=== PATIENT | female | born 1940 | race Caucasian/White ===

== ENCOUNTER → 2023-05-09 10:42 | Outpatient (REF) | payer MEDICARE, OTHER, SELFPAY ==
[2023-05-09 13:16] LABS: % Eosinophils 5.6 % (0-6); % Lymphocytes 31.1 % (20.5-51.1); % Monocytes 11.2 % (1.7-9.3); % Neutrophils 49.1 % (42.2-75.2); Absolute Basophils 0.2 10^3/uL (0-0.2); Absolute Eosinophils 0.3 10^3/uL (0-0.7); Absolute Lymphocytes 1.6 10^3/uL (1.2-3.4); Absolute Monocytes 0.6 10^3/uL (0.1-0.6); Absolute Neutrophils 2.5 10^3/uL (1.4-6.5); Hemoglobin 12.1 g/dL (12.0-16.0); Mean Corp Hgb Conc. 32.7 g/dL (33.0-37.0); Mean Corpuscular Hgb 30.4 pg (27.0-31.0); Mean Platelet Volume 9.7 fL (7.4-10.4); Nucleated Red Blood Cells % 0 %; Platelet Count 221 10^3/uL (130-400); Red Blood Cell Count 3.98 10^6/uL (4.20-5.40); Red Cell Dist. Width 16.1 % (11.5-14.5)
[2023-05-09 13:29] LABS: ALT (SGPT) 17 U/L (0-35); AST (SGOT) 25 U/L (14-36); Albumin 3.3 g/dl (3.5-5.0); Alkaline Phosphatase 71 U/L (38-126); Blood Urea Nitrogen 29 mg/dl (7-17); Calcium 8.8 mg/dl (8.4-10.2); Carbon Dioxide 27 mmol/L (22-30); Chloride 101 mmol/L (98-107); Glucose 164 mg/dl (70-99); Potassium 4.6 mmol/L (3.5-5.1); Sodium 136 mmol/L (135-145); Total Bilirubin 0.9 mg/dl (0.2-1.3); Total Protein 5.8 g/dl (6.3-8.2); eGFR > 60.00
[2023-05-09 14:47] LABS: Protein/creatinine Ratio 1.1; Urine Protein 179 mg/dl
== END ==
LOC: OLABHEARBC 10:42
PROVIDERS: ATTENDING PHYSICIAN Internal Medicine Hematology & Oncology
DX: C18.7 Malignant neoplasm of sigmoid colon (principal); C78.7 Secondary malignant neoplasm of liver and intrahepatic bile duct; R19.7 Diarrhea, unspecified
CPT/HCPCS: 36415; 80053; 82570; 84156; 85025

== ENCOUNTER → 2023-07-11 11:50 | Outpatient (REF) | payer MEDICARE, OTHER, SELFPAY ==
[2023-07-11 12:43] LABS: % Basophils 1.9 % (0-2); % Eosinophils 4.8 % (0-6); % Immature Granulocytes 0.2 % (0-0.5); % Lymphocytes 14.9 % (20.5-51.1); % Monocytes 13.9 % (1.7-9.3); % Neutrophils 64.3 % (42.2-75.2); Absolute Basophils 0.1 10^3/uL (0-0.2); Absolute Eosinophils 0.3 10^3/uL (0-0.7); Absolute Lymphocytes 0.8 10^3/uL (1.2-3.4); Absolute Monocytes 0.7 10^3/uL (0.1-0.6); Absolute Neutrophils 3.4 10^3/uL (1.4-6.5); Hematocrit 32.1 % (37.0-47.0); Hemoglobin 10.7 g/dL (12.0-16.0); Mean Corp Hgb Conc. 33.3 g/dL (33.0-37.0); Mean Corpuscular Hgb 30.6 pg (27.0-31.0); Mean Corpuscular Volume 91.7 fL (81.0-99.0); Mean Platelet Volume 9.5 fL (7.4-10.4); Nucleated Red Blood Cells % 0 %; Platelet Count 278 10^3/uL (130-400); Red Cell Dist. Width 15.8 % (11.5-14.5); White Blood Cell Count 5.3 10^3/uL (4.8-10.8)
[2023-07-11 12:51] LABS: ALT (SGPT) 14 U/L (0-35); AST (SGOT) 22 U/L (14-36); Albumin 2.6 g/dl (3.5-5.0); Alkaline Phosphatase 94 U/L (38-126); Blood Urea Nitrogen 13 mg/dl (7-17); Calcium 8.2 mg/dl (8.4-10.2); Carbon Dioxide 20 mmol/L (22-30); Chloride 103 mmol/L (98-107); Glucose 267 mg/dl (70-99); HDL Cholesterol 47 mg/dl; LDL Cholesterol, Calculated 31 mg/dl; Potassium 3.7 mmol/L (3.5-5.1); Sodium 132 mmol/L (135-145); Total Bilirubin 0.5 mg/dl (0.2-1.3); Total Cholesterol 108 mg/dl (50-199); Total Protein 4.9 g/dl (6.3-8.2); Triglyceride 150 mg/dl (10-149); Very Low Density Lipoprotein 30 mg/dl (0-30); eGFR > 60.00
[2023-07-11 13:09] LABS: Free T4 1.27 ng/dl (0.78-2.19); Vitamin D, 25-OH*** 15.7 ng/mL (30-80)
== END ==
LOC: OLABSOL 11:50
PROVIDERS: ATTENDING PHYSICIAN Nurse Practitioner Gerontology
DX: D69.9 Hemorrhagic condition, unspecified (principal); R94.4 Abnormal results of kidney function studies; D11.9 Benign neoplasm of major salivary gland, unspecified; E03.9 Hypothyroidism, unspecified; E55.9 Vitamin D deficiency, unspecified; E78.5 Hyperlipidemia, unspecified; R73.09 Other abnormal glucose
CPT/HCPCS: 36415; 80053; 80061; 82306; 83036; 84439; 84443; 85025

== ENCOUNTER → 2023-07-23 09:33 | Outpatient (REF) | payer MEDICARE, OTHER, SELFPAY ==
[2023-07-23 10:39] LABS: Sodium 132 mmol/L (135-145)
== END ==
LOC: OLABSOL 09:33
PROVIDERS: ATTENDING PHYSICIAN Nurse Practitioner Gerontology
DX: E87.1 Hypo-osmolality and hyponatremia (principal)
CPT/HCPCS: 36415; 84295

== ENCOUNTER 2023-08-10 22:37 | Inpatient (IN) | payer MEDICARE, OTHER, SELFPAY ==
[2023-08-10 19:13] VITALS: BP 128/89
[2023-08-10 19:16] VITALS: BP 128/89
[2023-08-10 19:34] LABS: Glucose - Point of Care > 600 mg/dl (70-99)
[2023-08-10 19:35] LABS: Hematocrit 37.9 % (37.0-47.0); Hemoglobin 12.2 g/dL (12.0-16.0); Mean Corp Hgb Conc. 32.2 g/dL (33.0-37.0); Mean Corpuscular Hgb 29.8 pg (27.0-31.0); Mean Corpuscular Volume 92.4 fL (81.0-99.0); Mean Platelet Volume 9.2 fL (7.4-10.4); Platelet Count 287 10^3/uL (130-400); Red Cell Dist. Width 15.4 % (11.5-14.5); White Blood Cell Count 7.2 10^3/uL (4.8-10.8)
[2023-08-10 19:35] LABS: Venous Blood Gas B.E. -18.4 mmol/L (-4 to +4); Venous Blood Gas HCO3 8.6 mmol/L (22-27); Venous Blood Gas O2 Sat % 97.7 %; Venous Blood Gas pCO2 24 mmHg (35-48); Venous Blood Gas pO2 92 mmHg (30-50)
[2023-08-10 19:36] LABS: Venous Blood Gas pH 7.16 (7.32-7.43)
[2023-08-10 19:43] LABS: INR 1.04; PT 13.4 Sec (11.4-14.6)
[2023-08-10 20:00] VITALS: BP 134/74
[2023-08-10 20:07] LABS: AST (SGOT) 31 U/L (14-36); Albumin 4.5 g/dl (3.5-5.0); Alkaline Phosphatase 112 U/L (38-126); Blood Urea Nitrogen 22 mg/dl (7-17); Calcium 9.9 mg/dl (8.4-10.2); Carbon Dioxide < 5 mmol/L (22-30); Chloride 103 mmol/L (98-107); Glucose 597 mg/dl (70-99); Potassium 4.5 mmol/L (3.5-5.1); Sodium 133 mmol/L (135-145); Total Bilirubin 0.8 mg/dl (0.2-1.3); Total Protein 7.2 g/dl (6.3-8.2); eGFR 50.48
[2023-08-10 20:13] VITALS: BMI 29.9
--- NOTE | 2023-08-10 20:18 | ED.GENMED ---
History of Present Illness
General
Chief Complaint: Abnormal Lab Value
Source: patient and shelter records
Exam Limitations: altered mental status
Time Seen by Provider: 08/10/23 19:41
Travel History
Have you had any contact with someone who has COVID-19?: Unable to Answer
Do you have any symptoms of coronavirus? Fever > 100 degrees, chills, cough, shortness of breath, sore throat, loss of taste or smell, muscle aches, or headache?: Unable to Answer
History of Present Illness
History of Present Illness:
82-year-old female who presents for evaluation of high blood sugar. Patient does have a history of diabetes. Patient offers no complaints of my evaluation. No reported fevers. Patient denies dysuria. No vomiting. No abdominal pain. Patient
has a reported history of colon cancer. She does have a port in the right chest wall. She has had urinary tract infections in the past
Past History
Past History
ED Past Medical History: Cancer (Colon), IDDM, Hypothyroidism, Psychiatric (Depression) and Other (Hemorrhoids)
ED Past Surgical History: Bowel resection and Orthopedic (Back surgery x 2)
Social History
Tobacco: Non-smoker
Alcohol: None
Drug: None
Personal:
Living: assisted living
Employment: Other
Family History
Family History: Other
Phy Exam
Physical Exam
Physical Exam:
CONSTITUTIONAL Patient alert and oriented to person, place. Well-appearing. Vital signs reviewed.
HEAD atraumatic, normocephalic.
EYES eyelids normal to inspection, Pupils equally round and reactive to light, Extraocular muscles intact, Conjunctiva normal, Sclera normal.
NECK normal range of motion, Trachea midline, no jugular venous distention.
RESPIRATORY CHEST No respiratory distress noted, Chest expansion equal, Bilateral breath sounds clear.
CARDIOVASCULAR regular rate and rhythm, Heart sounds normal.
ABDOMEN abdomen nontender, Bowel sounds normal. No distention.
BACK normal inspection, no obvious deformities
UPPER EXTREMITY range of motion normal, Motor strength normal, no cyanosis, no edema.
LOWER EXTREMITY range of motion normal, Motor strength normal, no cyanosis, no edema.
NEURO Speech normal, No focal motor deficits, Cranial Nerves intact to screening exam.
SKIN skin warm, dry, and normal in color.
PSYCHIATRIC patient oriented to person place.
Course
Orders/Labs/Results
Orders:
Orders
08/10/23 19:27
B-Hydroxybutyrate Urgent
Complete Blood Count/No Diff Urgent
Comprehensive Metabolic Panel Urgent
Magnesium Urgent
Comment: ADD ON
PT/INR [Prothrombin Time] Urgent
Phosphorus Urgent
Comment: ADD ON
08/10/23 19:28
Venous Blood Gas Urgent
%Oxygen/Room Air: 99
08/10/23 20:16
Urinalysis Urgent
Date Specimen was Collected: 08/10/23
Time Specimen was Collected: 19:22
08/10/23 20:17
Bedside Glucose- Treatment Q1H
IV Insert/Care/Rem.- Treatment PRN
0.9% Sodium Chloride 1000 ml [Nss] 1,000 ml IV BOLUS
Insulin Human Regular [Novolin R] 7 units IV NOW STA
08/10/23 20:22
Electrocardiogram (*1) Urgent
Reason for Study: Other
Other Reason for Exam: change in ms
EKG- Treatment ONCE
08/10/23 20:32
Reg Insulin 100 Units/100 ml [Novolin R Insulin Infusion] 100 units in 100 ml IV NOW
08/10/23 21:29
CXR2 [CR Chest - 2 Views ] Urgent
Comment:
Reason For Exam: DKA
08/10/23 21:43
CT Head W/o Iv Contrast Urgent
Comment:
Reason For Exam: Altered Mental Status
08/10/23 21:44
Admit/Transfer Patient As Directed
Co-Sign Provider:
Level of Care: Inpatient admission
Assign to:: ICU
Physician / Group: Ed
Diagnosis: DKA
Reason for Hospitalization: DKA
Expected length of stay greater than two midnights?: Yes
ELOS- Estimated Length of Stay in days: 3
I certify the patient meets the requirements for IP care: Yes
08/10/23 21:45
Code Status As Directed
Resuscitation Status: Full Code
08/10/23 21:49
Add On- LAB Urgent
Tests Added?: magnesium, phosphorus
08/10/23 22:02
Basic Metabolic Panel Q2H
Lactic Acid Urgent
Blood Culture Q30M
JAYDE Source: Blood/Venous
Specimen Description:
Blood Culture Q30M
JAYDE Source: Blood/Venous
Specimen Description:
08/10/23 23:52
Acetaminophen [Tylenol] 650 mg PO Q4HPRN PRN
Atorvastatin [Lipitor] 80 mg PO HS
KCl 20 Meq/0.9%Sodchl 1000 ml [NSS with KCL 20 MEQ] 20 meq in 1,000 ml IV 150 mls/hr
Levetiracetam [Keppra] 500 mg PO Q12H
Lorazepam [Ativan] 1 mg IV Q4HPRN PRN
Polyethylene Glycol Powder [Miralax] 17 grams PO DAILY PRN
Reg Insulin 100 Units/100 ml [Novolin R Insulin Infusion] 100 units in 100 ml IV PER PROTOCOL
Currently infusing. Continue current dose and titrate:: Yes
08/10/23 23:52
TSH Reflex To Free T4 Routine
Activity As Directed
Activity Level: Ambulate
With Assistance
Bedside Glucose Monitoring As Directed
Frequency: Q1H
Bladder Scan As Directed
Follow Bladder Retention/Intermittent Cath Algorithm?: Yes
PRN if no void in __ hours: 6
Frequency: Per Retention Algorithm
If Bladder Scan Result >: 400
then:: Straight cath
EKG with chest pain [ECG as needed] As Directed
ECG as needed for:: Chest Pain
I/O [Intake/ Output] As Directed
Frequency: Per unit guidelines
Notify MD As Directed
Notify physician if: Nurse to contact provider when glucose reaches 250 to obtain orders for D5 0.45 NaCl
Orthostatic Vital Signs As Directed
Orthostatic VS Frequency: BID
Pneumatic Compression Sleeves As Directed
Type: Knee high
Precautions As Directed
Type of Precautions: Seizure
Straight Cath As Directed
Frequency: Per Retention Algorithm
Additional Instructions: straight cath as needed per acute urinary retention algorithm for 24 hrs
Additional Instructions: for bladder scan greater than 400 mL
Vital Signs As Directed
Frequency: Per unit guidelines
Weight As Directed
Frequency: Daily
Oxygen Therapy [O2 Therapy] [RESP] Routine
Titrate/Wean O2 to maintain O2 sat greater than (%): 94
Ot Eval And Treat Routine
PT Consult [Pt Eval And Treat] Routine
Activity Level: Ambulate
With Assistance
DX Deep Vein Thrombosis Video Routine
08/11/23 02:22
Complete Blood Count/No Diff IN AM
08/11/23 06:00
EKG [Electrocardiogram (*1)] IN AM
Reason for Study: Chest Pain
Levothyroxine [Synthroid] 100 mcg PO DAILY@0600
08/11/23 08:00
Aripiprazole [Abilify] 2 mg PO DAILY
Aspirin Chewable [Low Strength Aspirin] 81 mg PO DAILY
Escitalopram Oxalate [Lexapro] 10 mg PO DAILY
08/11/23 10:20
Basic Metabolic Panel Q4H
08/11/23 14:55
Basic Metabolic Panel Q4H
08/11/23 19:14
Basic Metabolic Panel Q4H
08/11/23 23:45
Basic Metabolic Panel Q4H
08/12/23 03:10
Basic Metabolic Panel Q4H
Abnormal Lab Results
08/10/23 08/10/23 08/10/23
19:27 19:28 19:32
RBC 4.10 L 10^6/uL
(4.20-5.40)
MCHC 32.2 L g/dL
(33.0-37.0)
RDW 15.4 H %
(11.5-14.5)
VBG pH 7.16 L*
(7.32-7.43)
VBG pCO2 24 L mmHg
(35-48)
VBG pO2 92 H mmHg
(30-50)
VBG HCO3 8.6 L mmol/L
(22-27)
Sodium 133 L mmol/L
(135-145)
Chloride
Carbon Dioxide < 5 L* mmol/L
(22-30)
BUN 22 H mg/dl
(7-17)
Creatinine 1.1 H mg/dL
(0.6-1.0)
Glucose 597 H* mg/dl
(70-99)
Phosphorus 4.9 H mg/dl
(2.5-4.5)
Urine Ketones
Urine Glucose
B-Hydroxybutyrate 6.75 H mmol/L
(0.02-0.27)
POC Glucose > 600 H* mg/dl
(70-99)
08/10/23 08/10/23 08/10/23
20:16 22:02 22:30
RBC
MCHC
RDW
VBG pH
VBG pCO2
VBG pO2
VBG HCO3
Sodium 132 L mmol/L
(135-145)
Chloride 109 H mmol/L
(98-107)
Carbon Dioxide 9 L* mmol/L
(22-30)
BUN 21 H mg/dl
(7-17)
Creatinine
Glucose 325 H mg/dl
(70-99)
Phosphorus
Urine Ketones 3+ A
(Negative)
Urine Glucose 3+ A
(Negative)
B-Hydroxybutyrate
POC Glucose 330 H mg/dl
(70-99)
08/10/23 19:27
08/10/23 22:30
Vital Signs
Initial and Last Documented VS:
Initial Vital Signs
Temp Pulse Resp BP Pulse Ox
97.7 F 86 17 128/89 98
08/10/23 19:13 08/10/23 19:13 08/10/23 19:13 08/10/23 19:13 08/10/23 19:13
Last Documented Vital Signs
Temp Pulse Resp BP Pulse Ox
97.4 F 86 24 108/67 95
08/13/23 11:39 08/13/23 06:01 08/13/23 06:01 08/13/23 06:01 08/12/23 20:13
MDM/Problems Addressed
MDM/Problems Addressed:
Diabetic ketoacidosis, hyperglycemia, change in mental status
*Pulse Oximetry
Patient hypoxic: no
*Software Implementation Project Manager Interpretation
Rate: normal
Interpretation: normal
Rhythm: sinus
*Critical Care Note
Total Time (30-74mins, 75-104mins- exclusive of procedures): 40 minutes
Data Reviewed
Review of Other/Old Records Reveals: Discharge Summary (April 2023) and Other (History and physical admission note from April 16, 2023)
Source: patient
Further Testing Considered But Not Given:
Consider head CT but since current condition related to DKA
Patient Management
Social determinants of health affecting care: Living situation
Discussion with other providers: Hospitalist
Escalation/DeEscalation of care consider admission/obs:
82-year-old female presents with acidosis, hyperglycemia suspicious for diabetic ketoacidosis. IV insulin. IV fluids. Check urinalysis. Admit
ED Attending Note
-
Portions of this chart may have been created with voice recognition software.� Occasional wrong word or��sound alike� substitutions may have occurred due to the inherent limitations of voice recognition software.
Discharge Plan
Departure
Patient Disposition: Admit
Date of Disposition: 08/10/23
Time of Disposition: 20:25
Admit to: IMU
Presentation/result/management discussed w/ accepting MD/DO: Hospitalist
Discharge Problem:
DKA (diabetic ketoacidosis)
Interventions
Interventions:
*Risk Screen - Suicide Last Done: 08/10/23 19:13
*General Assessment Last Done: 08/10/23 19:13
*Neglect/Abuse Screening Last Done: 08/10/23 19:13
ED- Fall Risk Assessment Last Done: 08/11/23 00:00
*ED COVID-19 Vaccine History Last Done: 08/10/23 19:13
*Nursing Disposition Last Done: 08/10/23 23:43
Discharge Date and Time
Discharge Date/Time: 08/10/23 23:44
[2023-08-10 20:27] LABS: Urine Albumin Trace (Neg - Trace); Urine Bilirubin Negative (Negative); Urine Character Clear (Clear); Urine Color Yellow; Urine Glucose 3+ (Negative); Urine Ketone 3+ (Negative); Urine Leukocyte Negative (Negative); Urine Nitrite Negative (Negative); Urine Occult Blood Negative (Negative); Urine Specific Gravity 1.015 (<1.030); Urine Urobilinogen Negative (Neg - 1+)
[2023-08-10 20:34] LABS: ALT (SGPT) 24 U/L (0-35); B-Hydroxybutyrate 6.75 mmol/L (0.02-0.27)
[2023-08-10 21:00] VITALS: BP 125/68
[2023-08-10 21:34] VITALS: BP 121/65
[2023-08-10] MEDS: NSS 1000 IV (21:36)
[2023-08-10] MEDS: NOVOLIN R INSULIN INFUSION 100 IV (21:37)
--- NOTE | 2023-08-10 21:49 | HPS.HSE ---
Family Physician
-
Family Physician: INTERVIEWE UNKNOWN - PT NOT
Chief Complaint
-
High Glucose
History of Present Illness
Patient is an 82y F with PMH significant for colon cancer, depression and DM-II on insulin who presents to ED from [facility] for evaluation of elevated blood sugar. No further history available from facility. Patient offers no specific
complaints - but she is clearly confused / altered in the ED. Patient denies any current pain, chest pain, dyspnea, fevers / chills.
She knows that she is in [facility]. Year is 2019. She cannot say why she was sent to the hospital.
Patient does state that she had an episode of N/V this AM.
[place] records seem to indicate med changes - ? readmission from hospital stay - on 08/06/23.
Attempted to reach family / POA - but no answer at listed number.
Patient is unable to provide additional reliable details.
Medical History
Past Medical History
Past Medical History: Reports Other
Additional Past Medical History:
DM-II
Colon Cancer
Major Depression
Hypothyroidism
Peripheral Neuropathy
Obesity
Seizure Disorder
CVA
Past Surgical History: Reports Other
Additional Past Surgical History:
Hemicolectomy
Lumbar Lami / Fusion x 2
Social History
Tobacco: Non-smoker
Alcohol: None
Drug: None
Living: Assisted Living
Family History
Family History: Not pertinent
Allergies / Home Medications
Allergies reflects when Allergies were last updated in [facility].
Home Medications with original date entered in [facility]
Allergy/Medication List:
Allergies
Allergy/AdvReac Type Severity Reaction Status Date / Time
No Known Allergies Allergy Verified 08/10/23 20:14
Home Medications
escitalopram oxalate 10 mg tablet 10 mg PO DAILY #30 tabs 01/27/23
aripiprazole 2 mg tablet 2 mg PO DAILY Mental Health 04/24/23
alprazolam 0.25 mg tablet 0.25 mg PO DAILY PRN Anxiety 08/10/23
amlodipine 10 mg tablet 10 mg PO DAILY 08/10/23
aspirin 81 mg chewable tablet 81 mg PO DAILY 08/10/23
atorvastatin 80 mg tablet 80 mg PO HS 08/10/23
insulin glargine 100 unit/mL (3 mL) subcutaneous pen 6 unit SC QPM 08/10/23
insulin lispro 100 unit/mL subcutaneous pen 1 sliding scale dose SC DIRECTED 08/10/23
levetiracetam 500 mg tablet 500 mg PO Q12H 08/10/23
levothyroxine 100 mcg tablet 100 mcg PO DAILY 08/10/23
lisinopril 5 mg tablet 5 mg PO DAILY 08/10/23
omeprazole 40 mg capsule,delayed release 40 mg PO DAILY 08/10/23
sodium chloride 1,000 mg soluble tablet 1,000 mg PO DAILY 08/10/23
tramadol 50 mg tablet 50 mg PO Q6H PRN Pain 08/10/23
Review of Systems
-
History Source: Patient
A 12 point ROS was completed and negative except as noted: Yes
Constitutional: Denies Fever or Chills
Respiratory: Denies Cough or Trouble Breathing
Cardiac: Denies Chest Pain or Palpitations
Abdomen/GI: Reports Nausea and Vomiting; Denies Abdominal Pain or Diarrhea
: Denies Dysuria or Flank Pain
Musculoskeletal: Denies Joint Pain or Edema
Neurological: Denies Dizzy or Headache
Psych: Reports Calm and Other (Confused)
Physical Exam
Vital Signs
Vital Signs
Temp Pulse Resp BP Pulse Ox
97.7 F 86 17 128/89 98
08/10/23 19:13 08/10/23 19:13 08/10/23 19:13 08/10/23 19:13 08/10/23 19:13
Physical Exam
General: Other (82y F resting very comfortably. Pleasant and in no distress.)
HEENT: Moist mucous membranes and PERRLA
Respiratory: Clear; No Wheezes, Rales or Rhonchi
Cardiac: S1/S2 and Regular Rhythm; No Murmur
GI: Soft, Non Tender, Non Distended and Normal Bowel Sounds
Musculoskeletal: No Clubbing, No Cyanosis and No Edema
Neuro: Awake, Alert and Nonfocal/grossly intact; No Oriented
Psych: No Agitated or Anxious
Laboratory Results
-
08/10/23 19:
Laboratory Results
PT 13.4 Sec (11.4-14.6) 08/10/23:
INR 1.04 08/10/23:
Total Bilirubin 0.8 mg/dl (0.2-1.3) 08/10/23:
AST 31 U/L (14-36) 08/10/23:
ALT 24 U/L (0-35) 08/10/23:
Alkaline Phosphatase 112 U/L (38-126) 08/10/23:
Impression/Plan
-
A/P: Patient is an 82y F with PMH significant for DM-II, hypothyroidism and seizure disorder / CVA who is sent from local nursing facility for evaluation of elevated blood glucose.
DKA
DM-II, Uncontrolled
- Admit to ICU for further evaluation and treatment.
- Marked hyperglycemia with anion gap metabolic acidosis and positive B-OH c/w DKA.
- IV insulin infusion and adjust as needed based on q1h fingerstick checks.
- IVF support (with potassium supplementation for now) and adjust as needed based on labs / lytes.
- Check BMP q4h and adjust treatment as indicated.
- Transition to subcut insulin regimen once anion gap is normalized.
- Unclear trigger for DKA and further work-up including CT head, CXR and EKG have been ordered on admission.
CVA
Seizure Disorder
- These are new diagnoses on her NH form from her last admission here in 04/2023.
- Suspect that patient was recently hospitalize at another facility - and returned to [place] on 08/05 based on med rec dates.
- Most medications are new (Keppra, ASA, statin, etc).
- Continue Keppra. Seizure precautions. Ativan PRN.
- Continue ASA, statin. Monitor for any apparent focal neurologic changes.
- Check CT head as noted above.
- Continue efforts to try and contact family for interval history.
Benign Hypertension
- Stable. Hold home meds for now.
- Restart meds as needed for BP control.
Hypothyroidism
- Continue current T4 supplementation.
- Update TFTs.
Colon Cancer
- Prior h/o colon cancer. Port in place in the right ACW.
- It is unclear if patient is still on active therapy.
- April H&P suggests that she was at that time.
- Patient tells me that she is not on treatment at present - but current history seems unreliable.
Anxiety / Depression
- Stable. Continue outpatient medications.
GERD
- Stable. Continue daily PPI.
DVT Prophylaxis: SCDs
Code Status: Full
[2023-08-10] MEDS: NOVOLIN R 7 UNITS IV (22:04)
[2023-08-10 22:08] VITALS: BP 121/65
[2023-08-10 22:20] LABS: Lactic Acid 1.2 mmol/L (0.7-2.0)
[2023-08-10 22:23] LABS: Blood Urea Nitrogen 21 mg/dl (7-17); Carbon Dioxide 9 mmol/L (22-30); Chloride 109 mmol/L (98-107); Estimated Creatinine Clearance 38 ml/min; Glucose 325 mg/dl (70-99); Potassium 3.9 mmol/L (3.5-5.1); Sodium 132 mmol/L (135-145)
[2023-08-10 22:29] LABS: Magnesium 2.1 mg/dl (1.6-2.3); Phosphorus 4.9 mg/dl (2.5-4.5)
[2023-08-10 22:31] LABS: Glucose - Point of Care 330 mg/dl (70-99)
[2023-08-11] VITALS (27 sets, daily range): BP systolic 98–157; BP diastolic 59–130; PULSE 82; O2SAT 99; BMI 29.3
[2023-08-11 00:06] LABS: Glucose - Point of Care 215 mg/dl (70-99)
[2023-08-11] MEDS: D5/0.45%NSS with KCL 20 MEQ 1000 IV ×3 (00:41→14:03)
[2023-08-11] MEDS: LIPITOR PO ×2 (00:42→22:56)
[2023-08-11] MEDS: KEPPRA 500 MG IV ×3 (00:47→19:44)
[2023-08-11 01:18] LABS: Glucose - Point of Care 111 mg/dl (70-99)
[2023-08-11 02:08] LABS: Glucose - Point of Care 88 mg/dl (70-99)
[2023-08-11 02:32] LABS: Hematocrit 30.3 % (37.0-47.0); Mean Platelet Volume 9.5 fL (7.4-10.4); Platelet Count 227 10^3/uL (130-400); Red Blood Cell Count 3.33 10^6/uL (4.20-5.40); White Blood Cell Count 8.2 10^3/uL (4.8-10.8)
[2023-08-11 02:44] LABS: Blood Urea Nitrogen 20 mg/dl (7-17); Calcium 9.2 mg/dl (8.4-10.2); Carbon Dioxide 16 mmol/L (22-30); Chloride 110 mmol/L (98-107); Estimated Creatinine Clearance 47 ml/min; Glucose 90 mg/dl (70-99); Potassium 3.7 mmol/L (3.5-5.1); Sodium 137 mmol/L (135-145); eGFR > 60.00
--- NOTE | 2023-08-11 03:00 | PTCARENOTE ---
Received patient from the ED confused pulling off the monitors and taking her clothes off. mitts put on pt bit them off and continued to take off the monitors. bilateral wrist restraints in place. pt orientated to self and place only. calling out
for her mom. insulin gtt infusing
[2023-08-11 03:09] LABS: Glucose - Point of Care 78 mg/dl (70-99)
[2023-08-11 03:45] LABS: Free T4 1.09 ng/dl (0.78-2.19)
[2023-08-11 04:16] LABS: Glucose - Point of Care 122 mg/dl (70-99)
[2023-08-11 05:16] LABS: Glucose - Point of Care 156 mg/dl (70-99)
[2023-08-11 06:13] LABS: Glucose - Point of Care 174 mg/dl (70-99)
[2023-08-11 06:20] LABS: ALT (SGPT) 14 U/L (0-35); AST (SGOT) 25 U/L (14-36); Albumin 3.5 g/dl (3.5-5.0); Alkaline Phosphatase 97 U/L (38-126); Blood Urea Nitrogen 16 mg/dl (7-17); Calcium 9.1 mg/dl (8.4-10.2); Carbon Dioxide 14 mmol/L (22-30); Chloride 107 mmol/L (98-107); Direct Bilirubin 0.5 mg/dl (0.0-0.4); Estimated Creatinine Clearance 54 ml/min; Glucose 205 mg/dl (70-99); Magnesium 1.8 mg/dl (1.6-2.3); Phosphorus 2.5 mg/dl (2.5-4.5); Potassium 3.5 mmol/L (3.5-5.1); Sodium 134 mmol/L (135-145); Total Bilirubin 0.7 mg/dl (0.2-1.3); Total Protein 6.1 g/dl (6.3-8.2); eGFR > 60.00
[2023-08-11 07:12] LABS: Glucose - Point of Care 158 mg/dl (70-99)
--- NOTE | 2023-08-11 07:45 | CON.INTV ---
Addendum entered and electronically signed by Tahir Hernandez MD 08/11/23 17:23:
Patient transferred to IMU
Updated sister at length multiple times throughout the day
Reviewed case with Dr. Gonzales
We will sign off. Please call with questions
Original Note:
Consultation
Consultation Request
Date/Time Consultation Requested: 08/10
Date/Time Consultation Performed: 08/10
Reason for Consultation: Critical care
Medical History
-
History of Present Illness:
History obtained from reviewing the ER records, inpatient records, outpatient records, sister at bedside and son by phone. Minimal history obtainable from the patient due to confusion. 82-year-old female longterm resident with history of
diabetes, colon cancer, depression who presents with elevated blood sugar. Per ED records, patient offers no complaints. Upon arrival, afebrile, pulse 86, breathing at 17, blood pressure 128/89, 98%. Patient was noted to have hyperglycemia with
initial blood sugar of 597, serum bicarbonate less than 5, creatinine 1.1, anion gap of 25. Patient was given IV fluids, IV insulin and admitted to ICU for further management. Overnight, patient did have episodes of confusion, screaming out.
Of note, head CT was unremarkable, chest x-ray unremarkable. ABG 7.. EKG unremarkable
Of note, patient recently hospitalized in May 2023 at [facility] for stroke, questionable seizure. Also had episodes of hypoglycemia at that time, acidemia, started on metformin therapy. Followed by endocrine as outpatient, metformin
recently discontinued 2 weeks ago
.
PMH: Diabetes, insulin requiring, history of colon cancer, hypothyroidism, history of seizure disorder, stroke. History of metastatic colon cancer, discontinued immunotherapy approximately January 2023 at patient request. History of hemicolectomy,
laminectomy with fusion surgery in the past. Questionable history of intentional overdose with Ambien in February 2023
Past Medical History
Past Medical History: None (See above)
Past Surgical History: None (See above)
Social History
Tobacco: Non-smoker
Alcohol: None
Drug: None
Living: Assisted Living
Family History
Family History: Reviewed & Not Pertinent
Allergies / Home Medications
Allergies
Allergy/AdvReac Type Severity Reaction Status Date / Time
No Known Allergies Allergy Verified 08/10/23 20:14
Home Medications
�Medication �Instructions �Recorded �Confirmed �Last Taken �Type
aripiprazole 2 mg tablet 2 mg PO DAILY Mental Health 04/24/23 08/10/23 Unknown History
alprazolam 0.25 mg tablet 0.25 mg PO DAILY PRN Anxiety 08/10/23 08/10/23 Unknown History
amlodipine 10 mg tablet 10 mg PO DAILY Blood Pressure 08/10/23 08/10/23 Unknown History
aspirin 81 mg chewable tablet 81 mg PO DAILY Blood Clot 08/10/23 08/10/23 Unknown History
Prevention/Tx
atorvastatin 80 mg tablet 80 mg PO HS High Cholesterol 08/10/23 08/10/23 Unknown History
escitalopram oxalate 10 mg tablet 10 mg PO DAILY Mental 08/10/23 08/10/23 Unknown History
Health/Anxiety
insulin glargine 100 unit/mL (3 6 unit SC QPM Diabetes 08/10/23 08/10/23 Unknown History
mL) subcutaneous pen
insulin lispro 100 unit/mL 1 sliding scale dose SC 08/10/23 08/10/23 Unknown History
subcutaneous pen DIRECTED Diabetes
levetiracetam 500 mg tablet 500 mg PO Q12H Seizures 08/10/23 08/10/23 Unknown History
levothyroxine 100 mcg tablet 100 mcg PO DAILY Thyroid 08/10/23 08/10/23 Unknown History
lisinopril 5 mg tablet 5 mg PO DAILY Blood Pressure 08/10/23 08/10/23 Unknown History
omeprazole 40 mg capsule,delayed 40 mg PO DAILY Gastrointestinal 08/10/23 08/10/23 Unknown History
release Issue
sodium chloride 1,000 mg soluble 1,000 mg PO DAILY Electrolyte 08/10/23 08/10/23 Unknown History
tablet Repletion
tramadol 50 mg tablet 50 mg PO Q6H PRN Pain 08/10/23 08/10/23 Unknown History
Review of Systems
-
Unable to Obtain full review of systems at this time due to: Acuity
Vitals / Labs / Diagnostic Testing
Vital Signs
Temp Pulse Resp BP Pulse Ox
97.6 F 78 13 152/99 97
08/11/23 07:21 08/11/23 06:45 08/11/23 06:45 08/11/23 06:00 08/11/23 06:45
Lab Data
08/11/23 02:22
Laboratory Results
08/10/23
19:27
PT 13.4
INR 1.04
Diagnostic Testing:
Physical Exam
-
HEENT: Normocephalic and Anicteric
Cardiovascular: S1/S2, Regular Rhythm, Murmur (n), Rub (n) and Peripheral Edema (n)
Respiratory: Wheeze (n), Rales (n), Rhonchi (n) and Non-Labored Respirations
GI: Soft, Non Distended and Non Tender
Neurology: Awake, Alert and Other (Moves all extremities, does not follow commands consistently, appears to be uncomfortable)
Skin: Good Color and Other (No clubbing, no cyanosis)
General: Other (Intermittent moaning but otherwise nontoxic-appearing, wrist restraints in place)
Assessment
-
82-year-old female with history of diabetes, seizure disorder/stroke, history of colon cancer presents with hyperglycemia, acute DKA with elevated anion gap, metabolic acidemia. She was given IV fluids, IV insulin and admitted to ICU for further
management 08/11/2023
Acute DKA, metabolic acidemia
Normal lactate
Elevated ketones
Hyperglycemia, blood sugar 597
Noncompliance with blood sugar control
Anorexia
Conditions present prior to admission
Diabetes, type II
History of stroke/seizure disorder
Hospitalized April 2023
Hypothyroidism
History of colon cancer with hemicolectomy
Metastatic to the liver
Discontinued immunotherapy January 2023, at request of patient
Depression
Questionable history of suicide intent February 2023
Ambien therapy, per sister
Plan/recommendations
At this time, patient is critically ill with hypoglycemia, metabolic acidemia
Unfortunately, patient appears to not want to continue with medical care per multiple discussions with sister and by son over phone
Suspect intermittent hyperglycemia, hypoglycemia could be from noncompliance with medications, diet. Patient with extremely poor appetite, refuses to eat
Recent hospital stay at [place] May 2023 noted, records not available for my review
Patient is DNR per family (son and sister)
Moving forward
She is now hypoglycemic with blood sugar 78. Discontinue insulin drip
Remains on IV fluids, D5/half-normal saline with potassium
Given noncompliance with diet, medications, stabilizing blood sugar will be difficult
Appreciate input from diabetic SNACK FOODS MIXER OPERATOR
Unclear whether recent discontinuation of metformin may have triggered hyperglycemia
Follow blood sugars, sliding scale alone for now
Patient with prolonged QT per EKG, now 479
Question whether there may have been excessive intake of medications? Suicidal intention?. Cannot confirm this but suicidal intention in February with Ambien noted
Continue to follow QT
Hold medications that can prolong QT
Patient denies pain, denies anxiety but son states she is very anxious
She takes alprazolam as outpatient as needed
Will need to clarify CODE STATUS but patient is DNR
There is some discussion regarding possible transition to comfort or hospice but this decision will need to be made by family
Not sure whether can go by patient given history of depression and history of suicidal intent in the past
If this becomes an issue may need psychiatry evaluation
Urine analysis negative, chest x-ray unremarkable. No obvious evidence of infection
Follow electrolytes, potassium, magnesium
Especially in light of prolonged QT
Reviewed at length with critical care nursing, respiratory care, pharmacy, case management
Reviewed with son by phone at length and reviewed with sister at bedside
All questions answered
TCCT 40 min
--- NOTE | 2023-08-11 08:00 | PTCARENOTE ---
Received pt in bilateral soft wrist restraints and MITTS. She remains disoriented and lethargic. She thinks she is in [place] and able to answer that the current year is 2023. However when I ask her who the president is she just repeats '2023,
2023, 2023'. Left [id number] protective catheter with Insulin per DKA protocol. Right Subq port with IVF @ 140ml/hr. +palpable peripheral pulses. Knee-hi scd's removed for skin assessment, scattered bruising noted on her L/E's in various stages of
healing. Lungs CTA, pulse ox 97-99%. +BSX4. Pur wick intact. Safe environment maintained. She was informed of the plan of cre an oriented to the events of her hospitalization. Will continue to monitor.
[2023-08-11 08:14] LABS: Glucose - Point of Care 156 mg/dl (70-99)
[2023-08-11] MEDS: PROTONIX IV 40 MG IV (09:03)
[2023-08-11] MEDS: NSS (PRESERVATIVE FREE) 10 ML IV (09:03)
[2023-08-11 09:09] LABS: Glucose - Point of Care 109 mg/dl (70-99)
[2023-08-11 10:09] LABS: Glucose - Point of Care 78 mg/dl (70-99)
--- NOTE | 2023-08-11 10:09 | PTCARENOTE ---
Glucose 78, on DKA protocol. Dr. Hernandez notified. Insulin drip off as ordered. BMP obtained. Sister remains at the bedside and aware of the plan of care.
[2023-08-11 10:55] LABS: Blood Urea Nitrogen 13 mg/dl (7-17); Calcium 8.9 mg/dl (8.4-10.2); Carbon Dioxide 18 mmol/L (22-30); Chloride 106 mmol/L (98-107); Estimated Creatinine Clearance 63 ml/min; Glucose 78 mg/dl (70-99); Magnesium 1.6 mg/dl (1.6-2.3); Potassium 3.5 mmol/L (3.5-5.1); Sodium 132 mmol/L (135-145); eGFR > 60.00
[2023-08-11 11:14] LABS: Glucose - Point of Care 102 mg/dl (70-99)
--- NOTE | 2023-08-11 11:20 | PN.DE.MGMTRT ---
Insulin Management
- -
08/11/2023: Diabetes Management Consult:
82-year-old female with PMH: PMH: Hypothyroidism, CVA, Seizure d/o, Colon cancer with hemicolectomy, Metastatic to the liver, discontinued immunotherapy ~2022 at patient request, laminectomy with fusion, Depression, Questionable history of
suicide intent 02/2023with Ambien, and T2DM.
Patient presented from her Assisted living NH with hyperglycemia, Blood sugar of 597, Acute DKA with elevated anion gap, metabolic acidemia.
She was started on DKA protocol, and is noted for hypoglycemic with blood sugar of 78, prompting discontinuation of insulin drip.
Pt is Awake, Alert Kassi but does not follow commands, appears to be uncomfortable but unable to state what is bothering her.
History is obtained from pt's sister at bedside who reports that patient was recently hospitalized in 05/2023 at [facility] for stroke, questionable seizure and acidemia. Pt was started on metformin therapy and another oral drug that she can
not remember. Pt is followed by endocrine associates Dr. Toro who recommended pt stop Metformin because 'it was not doing anything for her'
Pt's sister reports that pt has had very poor appetite and has not been eating or drinking for several weeks now.
Her blood sugar monitoring ,insulin and meds have been administered by the nursing staff at the [place].
According to the sister, Pt was taking Lantus 8 units @ HS and ?dose of NovoLog AC.
Pt is currently with ongoing metabolic acidemia. Last BMP shows a GAP of 13, there is a pending BMP.
Will closely follow and reassess at next BMP. will transition off drip to SQ injections if GAP closed x2.
Diabetes History
- -
Type of Diabetes: 2 requiring insulin
Pre-Admission Diabetes Regimen
08/10/23 08/10/23 08/10/23
19:27 22:02 22:30
Creatinine 1.1 H 1.0 Cancelled
08/11/23 08/11/23 08/11/23
02:22 05:43 10:20
Creatinine 0.8 0.7 0.6
Lab Results
Hemoglobin A1c Cancelled 08/10/23 23:52
Insulin Pump Settings
IP Diabetes Regimen
08/10/23 08/10/23 08/10/23
19:27 19:32 22:02
Glucose 597 H* 325 H
POC Glucose > 600 H*
08/10/23 08/10/23 08/11/23
22:30 23:55 01:01
Glucose Cancelled
POC Glucose 330 H 215 H 111 H
08/11/23 08/11/23 08/11/23
01:57 02:22 02:58
Glucose 90
POC Glucose 88 78
08/11/23 08/11/23 08/11/23
04:04 05:04 05:43
Glucose 205 H
POC Glucose 122 H 156 H
08/11/23 08/11/23 08/11/23
06:01 07:00 08:02
Glucose
POC Glucose 174 H 158 H 156 H
08/11/23 08/11/23 08/11/23
08:57 09:57 10:20
Glucose 78
POC Glucose 109 H 78
08/11/23
11:01
Glucose
POC Glucose 102 H
Meal type: Breakfast
Patient Education
[2023-08-11 12:10] LABS: Glucose - Point of Care 166 mg/dl (70-99)
[2023-08-11] MEDS: MAGNESIUM SULFATE 100 IV (12:49)
[2023-08-11 13:18] LABS: Glucose - Point of Care 203 mg/dl (70-99)
--- NOTE | 2023-08-11 13:18 | PTCARENOTE ---
C/O bilateral hip pain. She asked for a heating pad and tramadol. Dr. Mendoza notified.
--- NOTE | 2023-08-11 13:40 | PTCARENOTE ---
Pt kicked blanket off. Asking to have her legs elevated. L/E's elevated on pillows. Warm blankets provided.
--- NOTE | 2023-08-11 13:46 | CM ---
Addendum entered by Lukasz Andersen 08/11/23 16:17:
Family requested hospice care with transition to comfort care.
A referral to hospice made.
Original Note:
CM following re: discharge planning.
Discussed in Rounds, reviewed pt's chart, met with pt and pt's sister Maoci at bedside.
Pt is an 82 year old female admitted with primary dx of Acute DKA, metabolic acidemia. Per rounds meeting, pt is not a great historian, in bilateral soft wrist restraints and MITTS, continue supportive care.
Per sister, pt just moved to [facility] 2 months ago, able to ambulate with a walker but mostly uses a wheelchair and remains in the bed. Pt has 2 supportive sons, son Pedro has POA.
CM spoke to [facility] RN Olivia and she stated that pt can walk with a walker and she just chose not to walk and uses a wheelchair and not getting up from a bed. Per Olivia, pt will be accepted back when pt can walk with a walker.
PT and OT will evaluate the pt to determine a level of care at discharge.
D/C plan: return back to [facility] with VN services vs SNF.
CM will follow with discharge plan updates as hospitalization progresses
[2023-08-11 14:11] LABS: Glucose - Point of Care 159 mg/dl (70-99)
--- NOTE | 2023-08-11 14:33 | PTCARENOTE ---
Pt agitated, and increasingly restless in bed, pulling her blankets off, pur wick out. She managed to get out of her left MITT. She was reminded where she was and the events of her hospitalization. Safe environment maintained.
--- NOTE | 2023-08-11 15:25 | PTCARENOTE ---
"Lengthy conversation with pt's sister Stephanie who has been at the pt's bedside and who has been providing updates to her sons. Family decision has been made to transition to comfort care and to have Hospice provide information and guidance. Dr. Beverly"Matthew and Dr. Mendoza notified of family's wishes. Dr. Hernandez also notified of family wishes. "
[2023-08-11 15:26] LABS: Blood Urea Nitrogen 12 mg/dl (7-17); Calcium 8.9 mg/dl (8.4-10.2); Carbon Dioxide 17 mmol/L (22-30); Chloride 105 mmol/L (98-107); Estimated Creatinine Clearance 63 ml/min; Glucose 102 mg/dl (70-99); Potassium 3.2 mmol/L (3.5-5.1); Sodium 132 mmol/L (135-145); eGFR > 60.00
[2023-08-11 15:37] LABS: Glucose - Point of Care 124 mg/dl (70-99)
[2023-08-11] MEDS: LOW STRENGTH ASPIRIN PO (15:40)
--- NOTE | 2023-08-11 16:10 | PTCARENOTE ---
Conversation on the unit with Dr. Mendoza regarding comfort measures that pt's family wants to transition to. Spoke with pt's son Pedro on the phone and he is very confused as to why there is confusion among the doctors regarding their wishes
moving forward with comfort measures. Pt has metastatic cancer per the family that she stopped treatment for back in April.
[2023-08-11] MEDS: MORPHINE SULFATE 2 MG IV (16:16)
[2023-08-11] MEDS: ATIVAN 0.5 MG IV (16:18)
[2023-08-11] MEDS: NSS (PRESERVATIVE FREE) 0.25 ML IV (16:19)
--- NOTE | 2023-08-11 17:38 | PTCARENOTE ---
pt remaiins DNR and NOT on comfort. Continuing with insulin drip for DKA and IVF.
[2023-08-11 17:41] LABS: Glucose - Point of Care 107 mg/dl (70-99)
--- NOTE | 2023-08-11 17:46 | PTCARENOTE ---
Dr. Mendoza notified of 10am and 2pm gap results and most recent potassium result.
--- NOTE | 2023-08-11 19:02 | PTCARENOTE ---
multiple TT with Dr. Mendoza regarding Insulin drip and IVF. She ordered to discontinue both drips which I did @ 1835 after I clarified the order with her @ 183. Now the plan os to restart both drips for 2 hours and repeat BMP. She was
informed that I will require new Insulin drip orders and IV orders.
[2023-08-11] MEDS: KCL 270 MEQ IV (19:07)
[2023-08-11 19:41] LABS: Blood Urea Nitrogen 11 mg/dl (7-17); Calcium 8.6 mg/dl (8.4-10.2); Carbon Dioxide 19 mmol/L (22-30); Chloride 105 mmol/L (98-107); Estimated Creatinine Clearance 63 ml/min; Glucose 121 mg/dl (70-99); Potassium 3.6 mmol/L (3.5-5.1); Sodium 131 mmol/L (135-145); eGFR > 60.00
[2023-08-11] MEDS: LOVENOX 40 MG SC (19:43)
[2023-08-11] MEDS: LANTUS 0.0899999999999999967 UNITS SC (20:25)
--- NOTE | 2023-08-11 20:30 | PTCARENOTE ---
received patient. insulin gtt and fluids off, new orders being placed. BGM 129, 9u lantus given. pt disoriented but arousable to voice. SR on monitor. SCDs on. on RA, denies SOB. satting >95%. purewick in place draining yellow urine. KCl running
through R SQ port, BMP due at 2200. sister updated via phone. IMU level of care. care ongoing.
[2023-08-11 20:39] LABS: Glucose - Point of Care 129 mg/dl (70-99)
--- NOTE | 2023-08-11 21:00 | W.PN.HOSP.TC ---
Addendum entered and electronically signed by Vaishali Mendoza MD, Resident 08/12/23 10:11:
Hyponatremia
Probable dehydration secondary to diabetic ketoacidosis.
Continue monitoring Electrolyes.
Addendum entered and electronically signed by Tom Gonzales MD 08/11/23 23:22:
Attending Addendum-
I saw and evaluated the patient. I reviewed the resident�s note and agree with findings and plan as documented in the resident�s note. Patient lucid and states she has had thought of hurting herself in past and had plan using sleeping pills. does
admit to current pain of the same. states she was compliant with meds prior to admission. Full 12 point ROS reviewed and negative except as documented Exam: Gen nad heart RRR lungs clear abd soft LE no edema Neuro AOx3 Plan:
DKA
- resolved, gap closed
- advance to PO diet
- cont IV insulin infusion transition to SC insulin weight based lantus 9 units, novolog q ac 3 units
- IVF support (with potassium supplementation for now) and adjust as needed based on labs / lytes.
- Check BMP q4h and adjust treatment as indicated.
Suicide Ideation with plan
- psych consult
CVA- PT OT speech
Seizure Disorder
- Continue Keppra. Seizure precautions. Ativan PRN.
- Continue ASA, statin
- CT head- no cute abnormalities
Benign Hypertension
- Stable. Hold home meds for now.
- Restart meds as needed for BP control.
Severe Agitation-
- likely TME related to severe back pain
- start morphine prn
- cont restraints for now DC likely when normoglycemic
Hypothyroidism
- transition to IV (75% dose) as patient not taking PO
- follow up in 4-6 weeks as OP
Colon Cancer
- h/o colon cancer. Port in place in the right ACW.
- patient stopped therapy
- Patient tells me that she is not on treatment at present - but current history seems unreliable.
Anxiety / Depression
- on standing xanax as OP
- start prn dosing for now
GERD
- Stable. Continue daily PPI.
Dispo- family requesting hospice due to patient noncompliance and wanting to stop cancer treatments c/s placed possibly hospice at [facility]
-Transfer to IMU
Time spent coordinating care, review of plan of care with resident, review of records, med rec, consults, notes, labs, rads, d/w nursing, Dr. Hernandez� 65 mins
Original Note:
Today's Communication/Plan
-
Transfer to IMU.
Switch to SC basal bolus regimen.
Advance diet as tolerated.
Repeat CBC, CMP, Mg and EKG in the Am.
Hospice consult pending, comfort measures discussed at length with Dr. Gonzales, and orders held in view of pending hospice and psych assessment.
Assessment / Plan
Assessment / Plan
Assessment -
82yo F with PMHx of DM, Seizure disorder, stroke, Colon cancver s/p hemicolectomy presents to the hospital with hyperglycemia and confusion, diagnosed with DKA and high anion gap metabolic acidosis
Plan -
Acute onset DKA -
Unclear etiology - most likely secondary from non compliance to medications vs subclinical hypothyroidism vs metastatic colon cancer.
urine analysis, chest x ray negative, pending blood cultures.
States metformin has been discontinued but on home insulin regimen with lantus at 8 units and novolog dose unclear.
Elevated beta hydroxybutyrate levels, and Anion gap upon admission, Blood glucose at 597.
Was on insulin drip and IV fluids D5/half-normal saline with potassium. Insulin drip discontinued and switched to basal bolus regimen after closure of anion gap.
Continue IVF and K replacement.
Advanced diet as tolerated, HbA1C in the am.
Diabetic nurse practitioner consulted for DM management. On board. Accuchecks Q1h.
Patient is moved to IMU. Patient and family refuses treatment, and asks for hospice care. Hospice care consulted, pending Hospice assessment, tomorrow in the am.
Patient's son Pedro barrera is power of Balancing Machine Set Up Worker, and states patient code status as DNR. Need to verify Code status.
Metastatic colon cancer
Family also states that patient has untreated mets to her liver on CT at [facility], discontinued the immunotherapy treatment as per patient's request in January.\\
Defer to hospice for records and admission into hospice.
Patient with prolonged QT per EKG, now 479
possibility of excessive intake of medications in the setting of active suicidal intention, Has executed in the past.
Hold medications that can prolong QT. Repeat EKG in the am.
Trend BMP and K in the setting of DKA, and QT prolongation.
Anxiety and Depression
Admits to having active depression thoughts with plan - executed once with sleeping pills in Feb 2023, but still admits planning to execute with alprazolam for her anxiety.
There is some discussion regarding possible transition to comfort or hospice but this decision will need to be made by family.
Given patient's admission to suicidal ideation, active plan and past execution of the plan, may need psychiatry evaluation if needed.
Pending psych consult based on hospice assessment.
reviewed case and relayed conversations with son Pedro Barrera with supervising physician Dr. Gonzales, and Nurse Tyron.
Anticipated Discharge: > 48 hours
Subjective/Interval History
-
Date of Service: August 11, 2023
Patient reports b/l hip pain, calls it worst pain, 15/10. Patient has lucid intervals with confusional episodes in between.
Obtained decent history from the patient when she was lucid.
Reports suicidal ideation and active plan with medications - sleeping pills
Objective Data
-
Labs:
Laboratory Results
08/11/23 08/11/23 08/11/23
10:20 14:55 19:14
Sodium 132 L 132 L 131 L
Potassium 3.5 3.2 L 3.6
Chloride 106 105 105
Carbon Dioxide 18 L 17 L 19 L
BUN 13 12 11
Creatinine 0.6 0.6 0.6
Glucose 78 102 H 121 H
Calcium 8.9 8.9 8.6
Vital Signs:
Vital Signs
Temp Pulse Resp BP Pulse Ox
97.9 F 74 18 98/73 97
08/11/23 15:11 08/11/23 20:00 08/11/23 20:00 08/11/23 20:00 08/11/23 20:38
I&O
08/10/23 08/11/23 08/12/23
06:59 06:59 06:59
Intake Total 150 / 302 2051.0 / 2051.0
Output Total 1200 / 1200 1600 / 1600
Balance -1050 / -898 451.0 / 451.0
Review of Systems
-
History Source: Family (patient's sister, son and patient herself, however minimal h/o obtained from the patient due to limited lucid time)
Constitutional: Reports No Symptoms
Respiratory: Reports No Symptoms
Cardiac: Reports No Symptoms
Abdomen/GI: Reports No Symptoms
Genitourinary: Reports No Symptoms
Musculoskeletal: Reports Joint Pain (b/l hip and leg pain.)
Skin: Reports No Symptoms
Neuro: Reports Other (confusion)
Hematologic / Lymphatic: Reports No Symptoms
Allergy / Immunology: Reports No Symptoms
Physical Exam
-
General: Well Developed, Well Nourished and Other (intermittent agitation, wrist restraints present, appears uncomfortable)
HEENT: Normocephalic, Atraumatic and Moist Mucous Membranes
Respiratory: Clear to Auscultation (no wheezes, rales and ronchi)
Cardiac: Regular Rhythm, S1/S2 and Other (no murmur, rubs and gallops)
GI: Soft, Nontender and Nondistended
Musculoskeletal: No Edema
Neuro: Awake, Alert and Other (moves all extremitites, does not follow commands)
Psych: Calm
[2023-08-11 23:34] LABS: Glucose - Point of Care 128 mg/dl (70-99)
[2023-08-12] VITALS (12 sets, daily range): BP systolic 100–152; BP diastolic 71–97; BMI 29.0
[2023-08-12 00:19] LABS: Blood Urea Nitrogen 12 mg/dl (7-17); Calcium 8.1 mg/dl (8.4-10.2); Carbon Dioxide 19 mmol/L (22-30); Chloride 107 mmol/L (98-107); Estimated Creatinine Clearance 47 ml/min; Glucose 172 mg/dl (70-99); Potassium 4.4 mmol/L (3.5-5.1); Sodium 129 mmol/L (135-145); eGFR > 60.00
[2023-08-12] MEDS: ATIVAN 0.5 MG IV ×2 (01:32→21:31)
[2023-08-12] MEDS: NSS (PRESERVATIVE FREE) 0.25 ML IV ×2 (01:33→21:30)
--- NOTE | 2023-08-12 03:17 | TRANSFER ---
pt transferred from ICU- pt is AAOx1-3, at times says all the orientation questions correct, other times trying to climb OOB. pt can be uncooperative, hard to reorient. attempting multiple times to climb oob. bed alarm on for safety. pulling off all
bands, tele leads, and gown. pt kept saying she had to go to the bathroom. pt up to bsc x2- pt not able to follow commands, placed back to bed. bladder scanned for 36ml. blood work drawn per order. pt with no diet order, asked OFFICE SERVICES ASSISTANT- day shift to
clarify. care ongoing.
[2023-08-12 03:18] LABS: % Basophils 1.5 % (0-2); % Immature Granulocytes 0.2 % (0-0.5); % Lymphocytes 20.5 % (20.5-51.1); % Monocytes 8.4 % (1.7-9.3); % Neutrophils 65.4 % (42.2-75.2); Absolute Basophils 0.1 10^3/uL (0-0.2); Absolute Eosinophils 0.3 10^3/uL (0-0.7); Absolute Lymphocytes 1.7 10^3/uL (1.2-3.4); Absolute Monocytes 0.7 10^3/uL (0.1-0.6); Absolute Neutrophils 5.3 10^3/uL (1.4-6.5); Hematocrit 34.1 % (37.0-47.0); Hemoglobin 11.8 g/dL (12.0-16.0); Mean Corp Hgb Conc. 34.6 g/dL (33.0-37.0); Mean Corpuscular Hgb 29.9 pg (27.0-31.0); Mean Corpuscular Volume 86.5 fL (81.0-99.0); Mean Platelet Volume 9.2 fL (7.4-10.4); Nucleated Red Blood Cells % 0 %; Platelet Count 277 10^3/uL (130-400); Red Blood Cell Count 3.94 10^6/uL (4.20-5.40); Red Cell Dist. Width 15.5 % (11.5-14.5); White Blood Cell Count 8.1 10^3/uL (4.8-10.8)
[2023-08-12 03:40] LABS: Blood Urea Nitrogen 12 mg/dl (7-17); Calcium 8.5 mg/dl (8.4-10.2); Carbon Dioxide 17 mmol/L (22-30); Chloride 109 mmol/L (98-107); Estimated Creatinine Clearance 47 ml/min; Glucose 160 mg/dl (70-99); Potassium 4.2 mmol/L (3.5-5.1); Sodium 132 mmol/L (135-145); eGFR > 60.00
[2023-08-12 03:42] LABS: ALT (SGPT) 15 U/L (0-35); AST (SGOT) 30 U/L (14-36); Albumin 3.2 g/dl (3.5-5.0); Alkaline Phosphatase 92 U/L (38-126); Blood Urea Nitrogen 12 mg/dl (7-17); Calcium 8.5 mg/dl (8.4-10.2); Carbon Dioxide 17 mmol/L (22-30); Chloride 110 mmol/L (98-107); Estimated Creatinine Clearance 47 ml/min; Glucose 158 mg/dl (70-99); Potassium 4.3 mmol/L (3.5-5.1); Sodium 132 mmol/L (135-145); Total Bilirubin 0.8 mg/dl (0.2-1.3); Total Protein 5.8 g/dl (6.3-8.2); eGFR > 60.00
[2023-08-12 05:37] LABS: Glucose - Point of Care 126 mg/dl (70-99)
[2023-08-12] MEDS: PROTONIX IV 40 MG IV (07:22)
[2023-08-12] MEDS: NSS (PRESERVATIVE FREE) 10 ML IV (07:22)
[2023-08-12] MEDS: LOW STRENGTH ASPIRIN PO (07:22)
[2023-08-12] MEDS: KEPPRA 500 MG IV ×2 (07:22→20:00)
[2023-08-12] MEDS: MORPHINE SULFATE 2 MG IV (07:23)
[2023-08-12 08:44] LABS: Glycohemoglobin (HgbA1c) 11.2 % (4.0-5.6)
--- NOTE | 2023-08-12 08:56 | PN.DE.MGMTRT ---
Insulin Management
- -
08/12/2023: Diabetes Management Consult:
82-year-old female with PMH: PMH: Hypothyroidism, CVA, Seizure d/o, Colon cancer with hemicolectomy, Metastatic to the liver, discontinued immunotherapy ~2022 at patient request, laminectomy with fusion, Depression, Questionable history of
suicide intent 02/2023with Ambien, and T2DM.
Patient presented from her Assisted living NH with hyperglycemia, Blood sugar of 597, Acute DKA with elevated anion gap, metabolic acidemia.
She was started on DKA protocol, and is noted for hypoglycemic with blood sugar of 78, prompting discontinuation of insulin drip.
Pt is somnolent and lethargic but arousable to verbal stimuli. Not following any commands, unable to interview at this time.
Was transitioned off insulin drip to SQ insulin injections. Received Lantus 9 units @ HS, 3AM glucose was 160 and FBG 126 this AM.
She is not ordered a diet, she has had poor appetite prior to admission. Will add 1800 denise diet and start Moderate corrective with meals.
Cont Lantus 9 units @ HS. Will consider adding NovoLog AC if mental status improves and pt is able tolerate diet with substantial food consumption.
Diabetes History
- -
Type of Diabetes: 2 requiring insulin
Pre-Admission Diabetes Regimen
08/11/23 08/11/23 08/11/23
10:20 14:55 19:14
Creatinine 0.6 0.6 0.6
08/11/23 08/12/23 08/12/23
23:45 03:10 03:10
Creatinine 0.8 0.8 0.8
Lab Results
Hemoglobin A1c Cancelled 08/10/23 23:52
Insulin Pump Settings
IP Diabetes Regimen
08/11/23 08/11/23 08/11/23
08:57 09:57 10:20
Glucose 78
POC Glucose 109 H 78
08/11/23 08/11/23 08/11/23
11:01 11:59 13:07
Glucose
POC Glucose 102 H 166 H 203 H
08/11/23 08/11/23 08/11/23
14:00 14:55 15:25
Glucose 102 H
POC Glucose 159 H 124 H
08/11/23 08/11/23 08/11/23
17:29 19:14 20:27
Glucose 121 H
POC Glucose 107 H 129 H
08/11/23 08/11/23 08/12/23
23:23 23:45 03:10
Glucose 172 H 160 H
POC Glucose 128 H
08/12/23 08/12/23
03:10 05:25
Glucose 158 H
POC Glucose 126 H
Patient Education
--- NOTE | 2023-08-12 09:07 | PN.CDI ---
CDI
- -
CDI:
Physician Documentation Request
Admit Date: 08/10/23 22:37
Dear Doctor Reji,
Patient admitted with DKA.
5/6 Potassium level: 3.2
5/6 Potassium Chloride 40 meq IV administered
5/6 Potassium Chloride 20 meq in 100mL's administered
5/6 Hospitalist PN: 'Continue IVF and K replacement.'
Based on the above, could you clarify in the progress notes, the appropriate diagnosis, if significant, that supports the above abnormalities and additional evaluation, monitoring and/or treatment rendered:
Hypokalemia
Abnormal lab value insignificant
Other
Use of terms such as suspected, likely, concern for, or probable (associated with a specific diagnosis that is being evaluated, monitored, or treated as if it exists) are acceptable and can be coded in the inpatient setting, when documented at the
time of discharge.
Thank you,
Daja Philippe RN, BSN
CDI Specialist
Available via [place] text
Please use your independent medical judgment in providing your response.
--- NOTE | 2023-08-12 09:12 | PN.CDI ---
CDI
- -
CDI:
Physician Documentation Request
Admit Date: 08/10/23 22:37
Dear Doctor Reji,
Patient admitted for DKA.
Laboratory Tests
08/10/23 08/10/23 08/11/23
19:27 22:02 10:20
Sodium 133 L 132 L 132 L
08/11/23 08/11/23 08/12/23
19:14 23:45 03:10
Sodium 131 L 129 L 132 L
Based on the above, could you clarify in the progress notes, the appropriate diagnosis, if significant, that supports the above abnormalities and additional evaluation, monitoring and/or treatment rendered:
Hyponatremia
Abnormal lab value insignificant
Other
Use of terms such as suspected, likely, concern for, or probable (associated with a specific diagnosis that is being evaluated, monitored, or treated as if it exists) are acceptable and can be coded in the inpatient setting, when documented at the
time of discharge.
Thank you,
Daja Philippe RN, BSN
CDI Specialist
Available via [place] text
Please use your independent medical judgment in providing your response.
--- NOTE | 2023-08-12 10:30 | W.PN.HOSP.TC ---
Addendum entered and electronically signed by Tom Gonzales MD 08/12/23 23:23:
Attending Addendum-
I saw and evaluated the patient. I reviewed the resident�s note and agree with findings and plan as documented in the resident�s note. patient sleeping comfortably easily arousable. feels improved. 'i feel good i had a good rest' denies SI or HI
Full 12 point ROS reviewed and negative except as documented Exam: Gen nad heart RRR lungs clear abd soft LE no edema Neuro AOx3 Plan:
# DKA
- resolved, gap closed
- advance to PO diet
- IV insulin infusion transition to SC insulin weight based lantus 9 units, with SSI as patient is variable with appetite
- Check BMP q4h and adjust treatment as indicated.
# Suicide Ideation
- psych consult appreciated-no plan
- has capacity to make decisions
#CVA
-PT OT speech
# Hyponatremia
- improved, pseudohyponatremia from hyperglycemia
- resolving
# Hypokalemia
- resolved
- replete as needed
- repeat BMP / mag in am
# non anion gap metabolic alkalosis
-check BMP in am
# Seizure Disorder
- Continue Keppra. Seizure precautions. Ativan PRN.
- Continue ASA, statin
- CT head- no cute abnormalities
# Benign Hypertension
- Stable. Hold home meds for now.
- Restart meds as needed for BP control.
# Severe Agitation
- resolved
- likely TME related to severe back pain
- cont morphine prn
- DC restraints
# Hypothyroidism
- cont IV (75% dose) levothyroxine until patient takes PO
- follow up in 4-6 weeks as OP
# Colon Cancer with liver mets
- h/o colon cancer. Port in place in the right ACW.
- patient stopped therapy
- not on treatment at present
# Anxiety / Depression
- on standing xanax as OP
- cont prn dosing for now
# GERD
- Stable. Continue daily PPI.
Dispo- family requesting hospice due to patient noncompliance and wanting to stop cancer treatments c/s placed possible IP hospice patient competent- for family meeting
Time spent coordinating care, review of plan of care with resident, review of records, med rec, consults, notes, labs, rads, d/w nursing hospice� 63 mins
Original Note:
Today's Communication/Plan
-
Insulin glargine 9 units, insulin aspart moderate resistance.
Accu-Cheks before meals.
Monitor BMP and CBC in the a.m.
Assessment / Plan
Assessment / Plan
Assessment -
82yo F with PMHx of DM, Seizure disorder, stroke, Colon cancver s/p hemicolectomy presents to the hospital with hyperglycemia and confusion, diagnosed with DKA and high anion gap metabolic acidosis
Plan -
Acute onset DKA -
Unclear etiology - most likely secondary from non compliance to medications vs subclinical hypothyroidism vs metastatic colon cancer.
urine analysis negative, chest x ray negative, blood cultures -negative..
States metformin has been discontinued but on home insulin regimen with lantus at 8 units and novolog dose unclear.
Elevated beta hydroxybutyrate levels, and Anion gap upon admission, Blood glucose at 597.
Was on insulin drip and IV fluids D5/half-normal saline with potassium. Insulin drip discontinued and switched to basal bolus regimen after closure of anion gap.
Reports not eating breakfast.
Advanced diet as tolerated, HbA1C in the am.
Diabetic nurse practitioner consulted for DM management. On board. Accuchecks Q1h.
Patient is moved to IMU. Patient and family refuses treatment, and asks for hospice care. Hospice on board. Multiple conversations with family, and patient for hospice intake. Pending decision tomorrow.
Patient's son Pedro barrera is power of [employer], and states patient code status as DNR. Need to verify Code status.
Hyponatremia-
Secondary to hypovolemia versus SIADH from escitalopram.
Trend sodium levels
Hypokalemia-
Resolved with KCl standing correction yesterday.
Metastatic colon cancer
Family also states that patient has untreated mets to her liver on CT at [place], discontinued the immunotherapy treatment as per patient's request in January.\\
Defer to hospice for records and admission into hospice.
Patient with prolonged QT per EKG, yesterday - 479, today -687.
possibility of excessive intake of medications in the setting of active suicidal intention, Has executed in the past.
Hold medications that can prolong QT. Repeat EKG in the am.
Trend BMP and K in the setting of DKA, and QT prolongation.
Anxiety and Depression
Psychiatry on board. Concern for increase in Lexapro dose as it can cause further QT prolongation. Will continue to follow-up in the inpatient before hospice decision made.
During lucid intervals, patient is in capacity to make decisions.
Admits to having active depression thoughts with plan - executed once with sleeping pills in Feb 2023, but still admits planning to execute with alprazolam for her anxiety.
There is some discussion regarding possible transition to comfort or hospice but this decision will need to be made by family.
Given patient's admission to suicidal ideation, no active plan in the hospital. Past execution of the plan, may need psychiatry evaluation if needed.
PT OT for early mobility.
Plan for general inpatient hospice as per hospice consult.
DVT prophylaxis
Lovenox
reviewed case and relayed conversations with son Pedro Barrera with supervising physician Dr. Gonzales,
Anticipated Discharge: > 48 hours
Subjective/Interval History
-
Date of Service: August 12, 2023
Patient still has occasional delirium. Overnight patient is agitated. Patient reports feeling okay when lucid, consents for psychiatry help, but also requests for hospice. Not oriented enough to explain her rationale for hospice.
Objective Data
-
Labs:
Laboratory Results
05/09/2808/12/23 08/12/23
23:45 03:10 03:10
WBC 8.1
Hgb 11.8 L
Hct 34.1 L
Plt Count 277 D
Sodium 129 L 132 L 132 L
Potassium 4.4 4.2
Chloride 107
Carbon Dioxide 19 L
BUN 12
Creatinine 0.8
Glucose 172 H
Calcium 8.1 L
Total Bilirubin
AST
ALT
Alkaline Phosphatase
08/12/23 08/12/23 08/12/23
03:10 03:10 03:10
WBC
Hgb
Hct
Plt Count
Sodium
Potassium 4.3
Chloride 109 H 110 H
Carbon Dioxide 17 L 17 L
BUN 12
Creatinine
Glucose
Calcium
Total Bilirubin
AST
ALT
Alkaline Phosphatase
08/12/23 08/12/23 08/12/23
03:10 03:10 03:10
WBC
Hgb
Hct
Plt Count
Sodium
Potassium
Chloride
Carbon Dioxide
BUN 12
Creatinine 0.8 0.8
Glucose 160 H 158 H
Calcium 8.5
Total Bilirubin
AST
ALT
Alkaline Phosphatase
08/12/23
03:10
WBC
Hgb
Hct
Plt Count
Sodium
Potassium
Chloride
Carbon Dioxide
BUN
Creatinine
Glucose
Calcium 8.5
Total Bilirubin 0.8
AST 30
ALT 15
Alkaline Phosphatase 92
Vital Signs:
Vital Signs
Temp Pulse Resp BP Pulse Ox
96.3 F L 66 19 111/86 96
08/12/23 04:15 08/12/23 08:00 08/12/23 08:00 08/12/23 08:00 08/12/23 09:55
I&O
08/11/23 08/12/23 08/13/23
06:59 06:59 06:59
Intake Total 150 / 302 2186.0 / 2186.0
Output Total 1200 / 1200 2250 / 2250
Balance -1050 / -898 -64.0 / -64.0
Review of Systems
-
History Source: Patient
All other systems: Reviewed and negative
Physical Exam
-
General: No Apparent Distress and Comfortable
HEENT: Normocephalic and Atraumatic
Respiratory: Clear to Auscultation (No wheezes rales rhonchi)
Cardiac: Regular Rhythm, S1/S2 and Other (No murmurs rubs gallops)
GI: Soft, Nontender and Nondistended
Musculoskeletal: No Edema and Other (Bilateral purpuric lesions on her lower legs.)
Neuro: Awake, Alert and Other (Not oriented, some residual sedation effect. Follows commands, makes conversations, clearly expresses her wishes.)
Psych: Depressed
--- NOTE | 2023-08-12 14:43 | HOSPNOTE ---
Long conversation with son and patient's sister on the phone about hospice and the philosophy. The patient resides at [facility]. At this time the patient will be admitted inpatient hospice if family agrees. Spoke at length to the Attending and we
feel the patient's agitation will be better managed with IV Ativan. The patient has poor PO intake, very dark santiago urine and the insulin drip was discontinued. If family agrees the patient will be moved to [facility] on hospice. Admissions was called
to reserve a bed and Case management updated. Will await final decision.
--- NOTE | 2023-08-12 14:51 | CS.PSYCHR ---
Consult Summary - Psychiatry
-
Pt is an 82 yo female with PMH significant for metastatic colon cancer, DM-II on insulin who presented to ED from [facility] for evaluation of elevated blood sugar. Pt presented confused/ with altered mental status, oriented to self and place
only, initially unable to give information. Psychiatry asked to evaluate for suicidal ideation, as well as capacity for decisions. Pt seen previously by Psychiatry at January 2023 after OD on Ambien. Pt was switched from Zoloft to Lexapro
then. Pt states she had a couple follow-up visits with Dr Barker after that admission. In the interim, pt reportedly elected to stop immunologic treatment for metastatic colon ca. Pt and family are now considering hospice care. On interview this
afternoon, pt states she feels depressed, has been through rough time, would like to feel better. She denies any current suicidal plan or intent. She states she would like to go home, not to a nursing facility. Pt is calm, pleasant, able to
smile, shows no agitation or signs of psychosis. Pt is fairly alert, makes appropriate eye contact, but remains disoriented to time and date.
Lexapro and Abilify have been held since admission due to disorientation and prolonged QTc- 562 on today. Sodium has been low- ranging around 132.
Psych Hx: depression in 2022 related to loss of , Rx'd Zoloft. No prior hx of depression. OD on Ambien Jan 2023; prescribed Lexapro 10 mg QD, with Abilify 2 mg QD as augmentation
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 Had happy marriage of 50 years. of pancreatic cancer at age 70. Moved to [facility] last year to be closer to
family, leaving her condo in [place].
MSE: fairly alert after easily awakened, oriented to self and place, not to time/date/year. Affect appropriate, answering questions. Speech coherent, thought clear/goal-directed. Able to state her wishes clearly. No signs of psychosis. Denies
active suicidal plan or intent at present- had to be asked a few times to clarify.
Imp: Unspecified Depressive d/o; does not appear to be impeding pt's decision-making
Delirium/ TME, improving; mental status still fluctuating
Rec: Capacity for decision-making appears mostly intact during lucid periods; should be able to make decisions regarding her medical care and disposition with assist from her immediate family, who are reportedly here and supportive.
Pt's medical status, including decreased Sodium level and prolonged QTc, preclude any additional psychiatric intervention or continuing pt's antidepressant
Will follow and offer support, reassess capacity if needed.
--- NOTE | 2023-08-12 15:26 | CM ---
Patient from [facility] with DKA. Room air. Receiving IV Keppra, IV Ativan. Seen by Psych. Comfort Care.
Spoke with Piero, nurse [facility]; they are able to accept the patient back, and are aware she is needing more care, and hospice. The [facility] is also in agreement with this. Informed her that patient will be staying here with hospice if
family agrees.
Spoke with [facility]; the probable plan is for the patient to stay here with [facility] hospice, and are waiting for family to make a final decision.
Plan probable [facility] Hospice.
[2023-08-12] MEDS: NOVOLOG FLEXPEN-MODERATE RESISTANCE SC ×2 (16:14→17:44)
--- NOTE | 2023-08-12 17:03 | HOSPNOTE ---
Attempted to reach son Pedro to see if a decision was made regarding inpatient hospice for this evening. Pedro did not answer call. Message left. Hospice will follow up tomorrow am to see if decision was made.
[2023-08-12] MEDS: LOVENOX 40 MG SC (17:47)
[2023-08-12 17:54] LABS: Glucose - Point of Care 104 mg/dl (70-99)
[2023-08-12] MEDS: LIPITOR 80 MG PO (20:08)
--- NOTE | 2023-08-12 20:15 | HOSPNOTE ---
Son Pedro called back and stated that patient is more lucid. They would like to continue with curative treatment at this time and consult with funeral arranger. Hospice will sign off at this time. Please reconsult if patient and family wish to pursue
hospice. Attending notified.
[2023-08-12] MEDS: LANTUS 0.0899999999999999967 UNITS SC (21:30)
[2023-08-12 21:34] LABS: Glucose - Point of Care 192 mg/dl (70-99)
[2023-08-13] VITALS (14 sets, daily range): BP systolic 94–139; BP diastolic 67–90; PULSE 75; BMI 29.3
[2023-08-13] MEDS: ATIVAN 0.5 MG IV (01:48)
[2023-08-13] MEDS: NSS (PRESERVATIVE FREE) 0.25 ML IV (01:48)
[2023-08-13 03:53] LABS: % Basophils 1.1 % (0-2); % Eosinophils 2.5 % (0-6); % Immature Granulocytes 0.3 % (0-0.5); % Lymphocytes 6.9 % (20.5-51.1); % Monocytes 7.6 % (1.7-9.3); % Neutrophils 81.6 % (42.2-75.2); Absolute Basophils 0.1 10^3/uL (0-0.2); Absolute Eosinophils 0.3 10^3/uL (0-0.7); Absolute Lymphocytes 0.8 10^3/uL (1.2-3.4); Absolute Monocytes 0.8 10^3/uL (0.1-0.6); Absolute Neutrophils 8.9 10^3/uL (1.4-6.5); Hematocrit 33.7 % (37.0-47.0); Hemoglobin 11.1 g/dL (12.0-16.0); Mean Corp Hgb Conc. 32.9 g/dL (33.0-37.0); Mean Corpuscular Hgb 29.8 pg (27.0-31.0); Mean Corpuscular Volume 90.3 fL (81.0-99.0); Mean Platelet Volume 9.6 fL (7.4-10.4); Nucleated Red Blood Cells % 0 %; Platelet Count 222 10^3/uL (130-400); Red Blood Cell Count 3.73 10^6/uL (4.20-5.40); Red Cell Dist. Width 15.7 % (11.5-14.5); White Blood Cell Count 10.9 10^3/uL (4.8-10.8)
[2023-08-13 04:11] LABS: ALT (SGPT) 14 U/L (0-35); AST (SGOT) 28 U/L (14-36); Alkaline Phosphatase 91 U/L (38-126); Blood Urea Nitrogen 17 mg/dl (7-17); Calcium 8.5 mg/dl (8.4-10.2); Carbon Dioxide 18 mmol/L (22-30); Chloride 107 mmol/L (98-107); Estimated Creatinine Clearance 47 ml/min; Glucose 316 mg/dl (70-99); Potassium 4.4 mmol/L (3.5-5.1); Sodium 130 mmol/L (135-145); Total Bilirubin 0.9 mg/dl (0.2-1.3); Total Protein 5.5 g/dl (6.3-8.2); eGFR > 60.00
--- NOTE | 2023-08-13 04:21 | PTCARENOTE ---
pt has been trying to climb OOB all night, saying she wants to go home, or to get dressed. pt reoriented with only a short time of success. pt to BSC at beginning of shift to have 2 BM's, the 2nd time patient very unsteady, almost falling. pt placed
back to bed. pt taking clothes off and playing with wires. medsitter placed at bedside for patient safety.
[2023-08-13 07:27] LABS: Glucose - Point of Care 308 mg/dl (70-99)
--- NOTE | 2023-08-13 08:28 | W.PN.HOSP.TC ---
Addendum entered and electronically signed by Tom Gonzales MD 08/13/23 22:34:
Attending Addendum-
I saw and evaluated the patient. I reviewed the resident�s note and agree with findings and plan as documented in the resident�s note. patient sleeping comfortably easily arousable. feels greatly improved, sleeping on entry to room. easily
arousable. has optimistic outlook. denies SI or HI Full 12 point ROS reviewed and negative except as documented Exam: Gen nad heart RRR lungs clear abd soft LE no edema Neuro AOx3 Plan:
# DKA
- resolved, gap closed now 7.5
- cont diabetic diet
- IV insulin infusion transition to SC insulin lantus 15 units, with SSI increase novolog q ac to 15u
- Check BMP daily and adjust treatment as indicated.
# Suicide Ideation
- psych consult appreciated-no plan
- has capacity to make decisions
# Prolonged QtC
- repeat EKG- resolved from 687->453
- avoid QT prolonging agenet
# Poor Appetite
- add remeron
-encourage po and added supplements
#CVA
-PT OT speech
# Hyponatremia
- improved, pseudohyponatremia from hyperglycemia
- corrected 133
- daily BMP
# Hypokalemia
- resolved
- replete as needed
- repeat BMP / mag in am
# non anion gap metabolic alkalosis
-check BMP in am
# Seizure Disorder
- Continue Keppra. Seizure precautions. Ativan PRN.
- Continue ASA, statin
- CT head- no cute abnormalities
# Benign Hypertension
- Stable. Hold home meds for now.
- Restart meds as needed for BP control.
#Agitation
- resolved
- likely TME
- cont morphine prn
- add ocycodone
- DC restraints
# Hypothyroidism
- transition to PO levothyroxine
- follow up in 4-6 weeks as OP
# Colon Cancer with liver mets
- h/o colon cancer. Port in place in the right ACW.
- patient stopped therapy
- not on treatment at present
# Anxiety / Depression
- on standing xanax as OP
- cont prn dosing for now change to PO
# GERD
- Stable. Continue daily PPI.
Dispo- family and patient decided to continue treatment- not ready for hospice
Time spent coordinating care, review of plan of care with resident, review of records, med rec, consults, notes, labs, rads, d/w nursing hospice� 65 mins
Original Note:
Today's Communication/Plan
-
All medications switched to oral.
Lantus 15 units at bedtime, NovoLog-moderate resistance sliding scale.
Mirtazapine 7.5 mg at bedtime.
Consult psych for resuming escitalopram in the a.m. tomorrow given no QT prolongation on EKG.
Every 6 hours glucose checks.
Check thyroid, CBC, CMP a.m.
Plan for discharge tomorrow.
Assessment / Plan
Assessment / Plan
Assessment -
82yo F with PMHx of DM, Seizure disorder, stroke, Colon cancver s/p hemicolectomy presents to the hospital with hyperglycemia and confusion, diagnosed with DKA and high anion gap metabolic acidosis
Plan -
Acute onset DKA -
Unclear etiology - most likely secondary from non compliance to medications vs subclinical hypothyroidism vs metastatic colon cancer.
urine analysis negative, chest x ray negative, blood cultures -negative..
States metformin has been discontinued but on home insulin regimen with lantus at 8 units and novolog dose unclear.
Elevated beta hydroxybutyrate levels, and Anion gap upon admission, Blood glucose at 597.
Was on insulin drip and IV fluids D5/half-normal saline with potassium. Insulin drip discontinued and switched to basal bolus regimen after closure of anion gap.
Currently patient ate breakfast. Her blood sugars yesterday night was at 313. In the setting of family refusing hospice and requesting endocrinology consult, reviewed insulin regimen change with diabetes nurse practitioner. As her HbA1c is at
11.2, decided to bump up the basal insulin bolus regimen-Lantus to 15 units and NovoLog to moderate resistance insulin sliding scale.
Resume diabetic diet on the patient.
Diabetic nurse practitioner consulted for DM management. On board. Accuchecks every 6 hourly.
Patient is downgraded to telemetry.
Hyponatremia-
Secondary to hypovolemia from elevated blood glucose versus SIADH from escitalopram.
Escitalopram on hold. Sodium today-130.
Trend sodium levels. If no improvement in sodium, supplement her sodium in the a.m. tomorrow.
Hypokalemia-
Resolved with KCl standing correction yesterday.
Hypothyroidism-
IV Synthyroid changed to oral Synthyroid.
Metastatic colon cancer
Family also states that patient has untreated mets to her liver on CT at [place], discontinued the immunotherapy treatment as per patient's request in January.\\
Defer to hospice for records and admission into hospice.
Patient with prolonged QT per EKG, 08/10- 479, 08/11 -687, 08/12-407.
possibility of excessive intake of medications in the setting of active suicidal intention, Has executed in the past.
After holding escitalopram, patient QT prolongation resolved. Repeat EKG in the am.
Trend BMP and K in the setting of DKA, and QT prolongation.
Anxiety and Depression
Psychiatry on board. Concern for increase in Lexapro dose as it can cause further QT prolongation.
Patient is stable today morning.
Patient reports feeling better and and not feeling depressed.
There is some discussion regarding possible transition to comfort or hospice but this decision will need to be made by family.
Given patient's admission to suicidal ideation, no active plan in the hospital. Past execution of the plan, may need psychiatry evaluation if needed.
Request for appetite
Mirtazapine oral started. Dual benefits for depression and appetite stimulation.
PT OT for early mobility.
DVT prophylaxis
Lovenox
reviewed case and relayed conversations with son Pedro Barrera with supervising physician Dr. Gonzales,
Anticipated Discharge: Within 24 hours
Subjective/Interval History
-
Date of Service: August 13, 2023
Overnight patient has had episodes of agitation. Patient reports feeling tired from having less sleep.
Patient also states that she feels much stable and she is not depressed.
She wants to walk and move around. Family is concerned about patient's appetite.
Objective Data
-
Labs:
Laboratory Results
08/13/23
03:37
WBC 10.9 H
Hgb 11.1 L
Hct 33.7 L
Plt Count 222
Sodium 130 L
Potassium 4.4
Chloride 107
Carbon Dioxide 18 L
BUN 17
Creatinine 0.8
Glucose 316 H
Calcium 8.5
Total Bilirubin 0.9
AST 28
ALT 14
Alkaline Phosphatase 91
Vital Signs:
Vital Signs
Temp Pulse Resp BP Pulse Ox
97.5 F 86 24 108/67 95
08/13/23 07:05 08/13/23 06:01 08/13/23 06:01 08/13/23 06:01 08/12/23 20:13
I&O
08/12/23 08/13/23 08/14/23
06:59 06:59 06:59
Intake Total 2186.0 / 2186.0
Output Total 2250 / 2250
Balance -64.0 / -64.0
Review of Systems
-
History Source: Patient
Constitutional: Reports No Appetite
Respiratory: Reports No Symptoms
Cardiac: Reports No Symptoms
Abdomen/GI: Reports No Symptoms
Genitourinary: Reports No Symptoms
Musculoskeletal: Reports No Symptoms
Neuro: Reports No Symptoms
Endocrine: Reports No Symptoms
Hematologic / Lymphatic: Reports No Symptoms
Allergy / Immunology: Reports No Symptoms
Physical Exam
-
General: Comfortable (In no apparent distress)
HEENT: Normocephalic, Atraumatic and Moist Mucous Membranes
Respiratory: Clear to Auscultation (No wheezes rales rhonchi)
Cardiac: Regular Rhythm, S1/S2 and Other (No murmurs, rubs, gallops.)
GI: Soft, Nontender, Nondistended and Normal Bowel Sounds
Neuro: AO x 3
Psych: Calm
--- NOTE | 2023-08-13 09:37 | PN.DE.MGMTRT ---
Insulin Management
- -
08/13/2023: Diabetes Management Consult:
82-year-old female with PMH: PMH: Hypothyroidism, CVA, Seizure d/o, Colon cancer with hemicolectomy, Metastatic to the liver, discontinued immunotherapy ~2022 at patient request, laminectomy with fusion, Depression, Questionable history of
suicide intent 02/2023 with Ambien, and T2DM.
Patient presented from her [facility]isted living [facility] with hyperglycemia, Blood sugar of 597, Acute DKA with elevated anion gap, metabolic acidemia.
She was started on DKA protocol, and is noted for hypoglycemic with blood sugar of 78, prompting discontinuation of insulin drip.
Pt is Awake, alert, oriented to person and place. She is noted for confusion, restlessness and agitation overnight.
Received Lantus 9 units @ HS. Glucose remains elevated, trended up to 316 @ 3AM and 308 pre-breakfast this morning.
Her appetite remains poor with <30% food consumption. Pt's nurse reports that pt ate a few bites off her breakfast tray.
Had a lengthy discussion with Pt's son- Pedro who states that Pt had an improvement in her mental status and that family would like to proceed with all life saving measures at this time. Attempted to reach Pt's sister but she did not answer.
Will increase Lantus dose to 15 units and NovoLog AC dose to 5 units. Cont corrective insulin with meals.
D/W pt's nurse and instructed to HOLD AC NovoLog dose if pt is not eating her meals.
Will closely monitor glucose trend and further adjust insulin dose as pt's appetite improves.
Diabetes plan of care discussed with pt's nurse and Hospitalist.
Diabetes History
- -
Type of Diabetes: 2 requiring insulin
Pre-Admission Diabetes Regimen
08/13/23
03:37
Creatinine 0.8
Lab Results
Hemoglobin A1c 11.2 % (4.0-5.6) H 08/11/23 02:22
Insulin Pump Settings
IP Diabetes Regimen
08/12/23 08/12/23 08/13/23
17:43 21:23 03:37
Glucose 316 H
POC Glucose 104 H 192 H
08/13/23
07:13
Glucose
POC Glucose 308 H
Meal type: Breakfast
Amount consumed: 0
Patient Education
[2023-08-13] MEDS: NOVOLOG FLEXPEN-MODERATE RESISTANCE 7 UNITS SC (09:55)
[2023-08-13] MEDS: LOW STRENGTH ASPIRIN PO (09:56)
[2023-08-13] MEDS: KEPPRA IV (10:00)
[2023-08-13] MEDS: NSS (PRESERVATIVE FREE) IV (10:00)
[2023-08-13] MEDS: PROTONIX IV IV (10:01)
[2023-08-13] MEDS: KEPPRA 500 MG IV ×2 (10:13→21:02)
--- NOTE | 2023-08-13 12:30 | CM ---
Patient from [facility] facility with DKA. Room air. Receiving IV Keppra. Seen by Psych. PT & OT recommend skilled rehab.
Spoke with patient's son Pedro; he declined hospice and wants patient to return to [facility] when medically ready. He agrees with her receiving PT/OT when she returns, and is aware that [facility] has their own agency preferences.
Spoke with Piero, nurse [facility]; they are able to accept the patient back and were made aware of her current mobility needs. They would like a referral to [facility] for PT/OT.
Referral placed for [facility] for PT/OT.
Plan home to [facility] with [facility] when medically ready.
[2023-08-13 12:33] LABS: Glucose - Point of Care 161 mg/dl (70-99)
--- NOTE | 2023-08-13 12:36 | PTCARENOTE ---
Assumed care of patient at beginning of this shift from previous RN. Morning accu check 308; covered with moderate dose sliding scale as per order. Patient then ordered mealtime insulin by Dr Castro which was not given d/t being changed by Vu "Michi"Mateo, LYNN. Patient only ate a few bites of scrambles eggs as a late breakfast. Repeat accu check done per request by Vu Galindo; accu check 161. Patient just finished few bites of eggs but does not want more to eat. Reviewed with Vu Galindo who instructed
to do another accu check when patient orders lunch and hold all insulins until that time. She also stated she did speak with family and we are to continue full care.
[2023-08-13] MEDS: NOVOLOG FLEXPEN-MODERATE RESISTANCE SC ×2 (13:48→16:51)
[2023-08-13] MEDS: PROTONIX 40 MG PO (13:48)
[2023-08-13 13:58] LABS: Glucose - Point of Care 116 mg/dl (70-99)
--- NOTE | 2023-08-13 15:48 | PTCARENOTE ---
Patient transferred to [facility]; report given to Haroldo. Med sitter supplies brought to room by EMMETT Vyas. Patient's sister up to visit and informed of new room number.
[2023-08-13 16:43] LABS: Glucose - Point of Care 132 mg/dl (70-99)
[2023-08-13] MEDS: LOVENOX 40 MG SC (18:39)
[2023-08-13] MEDS: NOVOLOG FLEXPEN SC (18:43)
[2023-08-13] MEDS: LIPITOR 80 MG PO (20:56)
[2023-08-13] MEDS: REMERON 7.5 MG PO (20:56)
[2023-08-13 21:17] LABS: Glucose - Point of Care 303 mg/dl (70-99)
[2023-08-13] MEDS: LANTUS 0.149999999999999994 UNITS SC (21:21)
[2023-08-13] MEDS: NOVOLOG FLEXPEN 7 UNITS SC (21:52)
[2023-08-13 23:37] LABS: Glucose - Point of Care 295 mg/dl (70-99)
[2023-08-14] VITALS (7 sets, daily range): BP systolic 104–148; BP diastolic 73–97; BMI 28.2
--- NOTE | 2023-08-14 | W.PN.UPDATE ---
Update Note
Progress Note Update
Due to technical issues, this note is regarding an encounter on 08/13/23
Pt seen & evaluated - was sedated and unable to participate in meaningful conversation. Would open eyes but fall asleep before responding to questions. Spoke to pts sister outside of room - she reported that pt has not been herself since her
passed 10 or 11 yrs ago, has been depressed since. Recently stopped chemotherapy for metastatic colon cancer and told sister she does not want to continue with this tx. While receiving chemotherapy it seems that pancreas was damaged by chemotherapy
agent and pt developed IDDM, has told sister numerous times she does not want to live with diabetes and indeed does not take insulin nor does she eat consistently. As per sister, although pt has been depressed since loss of , it seems that it
is since getting metastatic cancer diagnosis she has expressed repeatedly that she does not want to engage in the tx and does not want to live 'like this'. Sister reports that there was discussion of hospice at this admission which they did not
previously know was an option, however sister prefers that pt make that decision herself if that's a possibility. Discussed that we would continue reassessing pt for capacity for hospice decision making, as currently she is unable to due to TME.
Even when pt is more awake, she is noted to remain confused and with waxing/waning consciousness - sister notes that this is especially worse after she receives ativan.
Pt has prn ativan due to presence of seizure d/o - should not receive ativan prn for anything but seizure, please do not give prn ativan for agitation or confusion
Order low dose risperidone for agitation due to delusions/hallucinations 0.25mg TIDPRN - should allow for faster return to cognitive baseline than ativan would
Lacks capacity for medical decision making at this time as she is unable to meaningfully answer questions and demonstrate appropriate understanding of decisions - this will likely change as TME improves, will follow and reassess
[2023-08-14] MEDS: RISPERDAL M-TAB (ORALLY DISINTEGRATING) PO (00:52)
--- NOTE | 2023-08-14 01:02 | W.PN.UPDATE ---
Update Note
Progress Note Update
RN notified PHYSICIAN/ALLERGY/IMMUNOLOGY,patient is being combative, spitting out PO meds, will give one time Ativan 0.5mg IV now.
[2023-08-14] MEDS: ATIVAN 0.5 MG IV (01:10)
[2023-08-14] MEDS: NSS (PRESERVATIVE FREE) 0.25 ML IV (01:10)
--- NOTE | 2023-08-14 01:26 | PTCARENOTE ---
Patient became very agitated and was trying to get out of bed. AAOx1 (only oriented to self). Staff tried to calm patient down with therapeutic communication and diversional activities. Patient became combative and verbally abusive. BUFFER MACHINE made aware,
ordered Ativan see MAR. Call [facility] is within reach, bed alarm plugged in, and med sitter observing.
[2023-08-14 06:25] LABS: Hematocrit 33.5 % (37.0-47.0); Hemoglobin 11.2 g/dL (12.0-16.0); Mean Corp Hgb Conc. 33.4 g/dL (33.0-37.0); Mean Corpuscular Hgb 29.7 pg (27.0-31.0); Mean Corpuscular Volume 88.9 fL (81.0-99.0); Mean Platelet Volume 9.6 fL (7.4-10.4); Platelet Count 235 10^3/uL (130-400); Red Blood Cell Count 3.77 10^6/uL (4.20-5.40); Red Cell Dist. Width 15.7 % (11.5-14.5); White Blood Cell Count 6.4 10^3/uL (4.8-10.8)
[2023-08-14 07:00] LABS: ALT (SGPT) 14 U/L (0-35); AST (SGOT) 26 U/L (14-36); Albumin 3.2 g/dl (3.5-5.0); Alkaline Phosphatase 94 U/L (38-126); Blood Urea Nitrogen 16 mg/dl (7-17); Calcium 8.7 mg/dl (8.4-10.2); Carbon Dioxide 18 mmol/L (22-30); Chloride 111 mmol/L (98-107); Estimated Creatinine Clearance 47 ml/min; Glucose 60 mg/dl (70-99); Potassium 3.4 mmol/L (3.5-5.1); Sodium 136 mmol/L (135-145); Total Bilirubin 0.8 mg/dl (0.2-1.3); Total Protein 5.8 g/dl (6.3-8.2); eGFR > 60.00
--- NOTE | 2023-08-14 07:52 | W.PN.HOSP.TC ---
Addendum entered and electronically signed by Tom Gonzales MD 08/14/23 22:35:
Attending Addendum-
I saw and evaluated the patient. I reviewed the resident�s note and agree with findings and plan as documented in the resident�s note. patient resting comfortably easily arousable but confused. 'im on a yacht' overnight had episodes of hypoglycemia.
no other complaints noted. Poor appetite. was given ativan last PM. Full 12 point ROS reviewed and negative except as documented-limited by [facility] Exam: Gen NAD heart RRR lungs clear abd soft LE no edema Neuro AAOx1 Plan:
# DKA
- resolved
- cont diabetic diet
- IV insulin infusion transition to SC insulin decreased lantus 12 units, with SSI decrease novolog q ac to 5u- due to hypoglycemia and poor appetite
- Check BMP acuchecks qac q hs, and adjust treatment as indicated.
- Poor prognosis
# Suicide Ideation/Decision making Incapacity
- psych consult appreciated
- doesnt have capacity to make decisions
- POA Eric- son actively involved
# Prolonged QtC
- repeat EKG elevated again
- avoid QT prolonging agent
# Poor Appetite
- cont remeron
-encourage po
#CVA
-PT OT speech
# Hyponatremia
- resolved
- daily BMP
# Hypokalemia
- replete
- repeat BMP / mag in am
# Seizure Disorder
- Continue Keppra. Seizure precautions. DC ativan
- Continue ASA, statin
- CT head- no cute abnormalities
# Benign Hypertension
- elevated
- Restart meds
# Hypothyroidism
- TSH elevated
- f=give 1 dose IV Levothyroxine
- Increase dose home meds
# Colon Cancer with liver mets
- h/o colon cancer. Port in place in the right ACW.
- patient stopped therapy
- not on treatment at present
- poor prognosis
# Anxiety / Depression
- DC ativan
- DC Abilify and lexapro
- cont remeron
- add prn risperdone
# GERD
- Stable. Continue daily PPI.
Dispo- family and sister to decide if going to continue treatment vs hospice
Time spent coordinating care, review of plan of care with resident, review of records, med rec, consults, notes, labs, rads, d/w nursing� 60 mins
Original Note:
Today's Communication/Plan
-
Potassium supplementation
Levothyroxine supplementation
Restart antihypertensive medications
Every 6 hourly Accu-Cheks
Discontinue Ativan, aripiprazole, escitalopram.
TSH levels in the a.m.
Assessment / Plan
Assessment / Plan
Assessment -
82yo F with PMHx of DM, Seizure disorder, stroke, Colon cancver s/p hemicolectomy presents to the hospital with hyperglycemia and confusion, diagnosed with DKA and high anion gap metabolic acidosis
Plan -
Acute onset confusion-
Secondary to hypothyroidism versus overnight sedation versus hospitalization versus residual effects from DKA versus hypokalemia.
Potassium and levothyroxine supplementation given.
Reassess for confusion tomorrow.
Acute onset DKA -
Unclear etiology - most likely secondary from non compliance to medications vs subclinical hypothyroidism vs metastatic colon cancer.
urine analysis negative, chest x ray negative, blood cultures -negative..
Elevated beta hydroxybutyrate levels, and Anion gap upon admission, Blood glucose at 597.
Was on insulin drip and IV fluids D5/half-normal saline with potassium. Insulin drip discontinued and switched to basal bolus regimen after closure of anion gap.
Currently patient ate breakfast. Her blood sugars yesterday night was at 313. In the setting of family refusing hospice and requesting endocrinology consult, reviewed insulin regimen change with diabetes nurse practitioner. As her HbA1c is at
11.2, decided to bump up the basal insulin bolus regimen-Lantus to 15 units and NovoLog to moderate resistance insulin sliding scale.
Resume diabetic diet on the patient.
Accuchecks every 6 hourly. Patient is downgraded to telemetry.
Hypoglycemia
Morning blood sugar at 40. Bump to 70 after drinking and orange juice.
Lantus dose reduced to 12 units. Insulin sliding scale changed to 5 units.
Hyponatremia-
Secondary to hypovolemia from elevated blood glucose versus SIADH from escitalopram.
Resolved with escitalopram hold. Aripiprazole held.
Trend sodium levels.
Hypokalemia-
Resolved with KCl standing correction yesterday.
Potassium supplementation given today.
Hypertension
Resumed home meds amlodipine and lisinopril.
Hypothyroidism-
TSH high at 77 in the AM today.
Patient took a Synthyroid dose of 100 mcg oral in the a.m
Synthyroid IV 100 mcg added.
Metastatic colon cancer
Family also states that patient has untreated mets to her liver on CT at [facility] [place], discontinued the immunotherapy treatment as per patient's request in January.\\
Defer to hospice for records and admission into hospice.
Patient with prolonged QT per EKG, 08/10- 479, 08/11 -687, 08/12-407, 08/13-587.
Patient's QT prolongation resolved yesterday, but is back today.
Repeat EKG in the am. Escitalopram and aripiprazole on hold.
Trend BMP and K in the setting of DKA, and QT prolongation.
Anxiety and Depression
Psychiatry on board. Concern for increase in Lexapro dose as it can cause further QT prolongation.
Risperidone as needed.
Patient is stable today morning.
Patient reports feeling better and and not feeling depressed.
There is some discussion regarding possible transition to comfort or hospice but this decision will need to be made by family.
Given patient's admission to suicidal ideation, no active plan in the hospital. Past execution of the plan, may need psychiatry evaluation if needed.
Request for appetite
Mirtazapine oral started. Dual benefits for depression and appetite stimulation.
PT OT for early mobility.
DVT prophylaxis
Lovenox
Had an extensive discussion on the patient's situation with patient's Sister Grey, and son Pedro. Patient's family wants to decide on goals of care in the family meeting.
May opt for hospice. Attending physician Dr. Castro updated.
Anticipated Discharge: 24 - 48 hours
Subjective/Interval History
-
Date of Service: August 14, 2023
Overnight agitation.
New onset confusion, and episode of hypoglycemia in the morning.
Hypoglycemia improved with orange juice.
Oriented to herself, but not to person and time.
Objective Data
-
Labs:
Laboratory Results
08/14/23
05:37
WBC 6.4
Hgb 11.2 L
Hct 33.5 L
Plt Count 235
Sodium 136
Potassium 3.4 L
Chloride 111 H
Carbon Dioxide 18 L
BUN 16
Creatinine 0.8
Glucose 60 L
Calcium 8.7
Total Bilirubin 0.8
AST 26
ALT 14
Alkaline Phosphatase 94
Vital Signs:
Vital Signs
Temp Pulse Resp BP Pulse Ox
97.5 F 84 20 146/83 98
08/14/23 03:44 08/14/23 03:44 08/14/23 03:44 08/14/23 03:44 08/14/23 03:44
Review of Systems
-
History Source: Other (Nurse overnight, nurse day team.)
Neuro: Reports Other (Agitation and confusion.)
Physical Exam
-
General: Other (Uncomfortable and restless in the bed.)
HEENT: Normocephalic, Atraumatic and Moist Mucous Membranes
Respiratory: Clear to Auscultation (No wheezes rales rhonchi.)
Cardiac: Regular Rhythm and S1/S2
GI: Soft, Nontender, Nondistended and Normal Bowel Sounds
Genito-urinary: No Costovertebral Tender
Musculoskeletal: No Edema
Neuro: Awake, Alert and Oriented (Not oriented to time place and person. Oriented only to herself.)
Psych: Confused and Agitated
[2023-08-14 07:57] LABS: Free T4 0.79 ng/dl (0.78-2.19)
[2023-08-14 08:34] LABS: Glucose - Point of Care 40 mg/dl (70-99)
[2023-08-14] MEDS: LOW STRENGTH ASPIRIN 81 MG PO (08:45)
[2023-08-14] MEDS: PROTONIX 40 MG PO (08:46)
--- NOTE | 2023-08-14 08:48 | PN.DE.MGMTRT ---
Insulin Management
- -
08/14/2023: Diabetes Management Consult:
82-year-old female with PMH: PMH: Hypothyroidism, CVA, Seizure d/o, Colon cancer with hemicolectomy, Metastatic to the liver, discontinued immunotherapy ~2022 at patient request, laminectomy with fusion, Depression, Questionable history of
suicide intent 02/2023 with Ambien, and T2DM.
Patient presented from her Assisted living NH with hyperglycemia, Blood sugar of 597, Acute DKA with elevated anion gap, metabolic acidemia.
She was started on DKA protocol, and is noted for hypoglycemic with blood sugar of 78, prompting discontinuation of insulin drip.
Pt is Awake, alert, oriented to self only, confused, restless and agitated with facial grimaces.
She is unable to articulate what is bothering her, Pt's sister and Hospitalist resident at bedside.
Noted for hypoglycemia as low as 40 this morning. TSH elevated at 70, managed by hospitalist,--> increased levothyroxine to 100 mcg daily
Will reduce Lantus dose to 12 units. Pt with ongoing poor appetite, consuming <30% of her meals.
Had a lengthy discussion with Pt's Sister at bedside and Son- Pedro on the phone.
Discussed goals of care, family is planning to meet tonight to make decision for code status. They would like to proceed with all life saving measures at this time until a decision has been made.
D/W pt's nurse and instructed to HOLD AC NovoLog dose if pt is not eating her meals.
Will closely monitor glucose trend and further adjust insulin dose
Diabetes History
- -
Type of Diabetes: 2 requiring insulin
Pre-Admission Diabetes Regimen
08/14/23
05:37
Creatinine 0.8
Lab Results
Hemoglobin A1c 11.2 % (4.0-5.6) H 08/11/23 02:22
Insulin Pump Settings
IP Diabetes Regimen
08/13/23 08/13/23 08/13/23
12:22 13:47 16:41
Glucose
POC Glucose 161 H 116 H 132 H
08/13/23 08/13/23 08/14/23
21:15 23:35 05:37
Glucose 60 L
POC Glucose 303 H 295 H
08/14/23
08:33
Glucose
POC Glucose 40 L*
Patient Education
[2023-08-14] MEDS: NOVOLOG FLEXPEN SC ×2 (08:51→12:32)
[2023-08-14] MEDS: NOVOLOG FLEXPEN-MODERATE RESISTANCE SC (08:51)
[2023-08-14 08:52] LABS: Glucose - Point of Care 75 mg/dl (70-99)
--- NOTE | 2023-08-14 08:58 | PTCARENOTE ---
Made resident MD aware of patients morning hypoglycemia and low PO intake this am through tiger text, awaiting response
[2023-08-14] MEDS: KEPPRA 500 MG PO ×2 (10:20→22:36)
[2023-08-14 10:36] LABS: Glucose - Point of Care 115 mg/dl (70-99)
[2023-08-14 10:56] LABS: Cortisol, Random 13.1 ug/dl
--- NOTE | 2023-08-14 11:39 | W.PN.UPDATE ---
Update Note
Progress Note Update
patient seen chart reviewed. patient w hx metastatic colon cancer. she was admitted with change in mental status. she remains confused. she was very pleasant but told me it was 'may ' and she was 'on a boat'. she further told me that her
() and her family with with 'us' she offered no complaints and seemed comfortable . she was lying in bed bundled in blankets with cold air coming out of the radiator which i was able to ameliorate with blankets on the radiator.
notable prolonged qtc. there is also a note in the chart that ativan ordered for anxiety should be used only for sz as family feels ativan has not been helpful. she is on keppra for sz and if breakthrough sz were a problem she should be seen by
neuro. for now dc ativan. noted risperdal prn is in place for agitation which she has not needed. apoke with nursing who report patient is cooperative. while risperdal has been known to prolong qtc it is generally not significant. dc abilify not
clear why two antipsychotics prn risperdal and standing abilify. noted mirtazepine 7.5 mg q hs which was left in place. sodium is now 136 remeron is one of the better antidep with hx hyponatremia usually not an issue for qtc but if qtc continues
to rise would suggest we reconsider med list. there has also been talk of hospice in the chart but decision has not been made. will follow
[2023-08-14 12:50] LABS: Glucose - Point of Care 266 mg/dl (70-99)
[2023-08-14] MEDS: NOVOLOG FLEXPEN-MODERATE RESISTANCE 5 UNITS SC (13:59)
[2023-08-14] MEDS: KCL 270 MEQ IV (16:09)
[2023-08-14] MEDS: NORVASC 10 MG PO (16:54)
[2023-08-14] MEDS: RISPERDAL M-TAB (ORALLY DISINTEGRATING) 0.25 MG PO (16:54)
[2023-08-14 16:56] LABS: Glucose - Point of Care 182 mg/dl (70-99)
[2023-08-14] MEDS: NOVOLOG FLEXPEN 5 UNITS SC (16:59)
[2023-08-14] MEDS: NOVOLOG FLEXPEN-MODERATE RESISTANCE 1 UNITS SC (16:59)
[2023-08-14] MEDS: LOVENOX 40 MG SC (17:04)
[2023-08-14] MEDS: LEVOTHROID 100 MCG IV (17:18)
--- NOTE | 2023-08-14 17:52 | PTCARENOTE ---
Patient son is visiting with patient and told RN he would like to move forward with hospice. I told him that a corrections caseworker can reach out to him tomorrow to begin transition to hospice if that is what all family members want.
--- NOTE | 2023-08-14 18:13 | PTCARENOTE ---
Patients son told RN that his aunt and him are okay with staff giving his mom ativan. I told him that his Aunt told us today (MD/diabetes coordinator/Psych MD) to not give ativan and that she told all of us that she was upset at how drowsy it made
her sister. Now ativan has been d/c in JUN. Risperdal given 1x at end of shift for agitation. RN relayed to pt's son that he should call his aunt and confirm that they are both ok with staff giving patient ativan if Risperdal doesn't work. RN also
explained that patients mental status is coming and going- sometimes she is drowsy and other times she is trying to repeatedly get out of bed/pull lines/tubes/cords out. Will pass off this exchange to oncoming RN.
[2023-08-14] MEDS: ZESTRIL 5 MG PO (18:22)
--- NOTE | 2023-08-14 18:52 | W.PN.UPDATE ---
Update Note
Progress Note Update
Family decided to go with hospice care. Son Pedro and Sister Grey are in agreement for hospice care. Hospice care services initiated as per wishes of the family as patient seems to be very confused and oriented only to herself. (Patient has
stated that she would want hospice when lucid about 2 days ago even though she could not give a rationale for it)hospice intake orders, adoption social worker consult placed.
Supervising physician Dr. Castro notified.
[2023-08-14] MEDS: FLUSH (NSS) 1 FLUSH IV ×2 (20:20→21:55)
[2023-08-14 21:16] LABS: Glucose - Point of Care 39 mg/dl (70-99)
[2023-08-14 21:31] LABS: Glucose - Point of Care 48 mg/dl (70-99)
[2023-08-14] MEDS: DEXTROSE 50% SYRINGE 12.5 GRAMS IV (21:35)
--- NOTE | 2023-08-14 21:41 | W.PN.UPDATE ---
Update Note
Progress Note Update
pt with hypoglycemia this evening (BG39) --after OJ came to 48
pt with poor intake. will hold jana durand
pt likely going to hospice tomorrow per notes
[2023-08-14 22:17] LABS: Glucose - Point of Care 113 mg/dl (70-99)
--- NOTE | 2023-08-14 22:20 | GLUCOSE ---
Pt with slurred speech, drowsy at 2109 glucose 39- gave OJ per protocol at 2128 rechecked 48- pt refusing OJ- given D50 IV through R SQ port. Recheck 113. [employer] aware.
[2023-08-14] MEDS: LIPITOR 80 MG PO (22:36)
[2023-08-14] MEDS: REMERON 7.5 MG PO (22:36)
[2023-08-15 00:30] LABS: Glucose - Point of Care 197 mg/dl (70-99)
--- NOTE | 2023-08-15 01:40 | VATNOTE ---
PT AGAIN DEACCESSED R SUBQ PRT. DUE TO SAFETY ISSUES RELATED TO PT AND STAFF. PRT RECENTLY FLUSHED WITH HEPARIN AFTER D50 ADMINISTERED. PRT NOT REACCESSED AT THIS TIME. ATTEMPTED X2 TO CRITICAL ACCESS HOSPITAL PERIPHERAL SITE W/O SUCCESS. WILL LEAVE W/O IV ACCESS
AND CONTINUE TO ASSESS BG. VAT TO FOLLOW. PCN IN AGREEMENT WITH PLAN OF CARE.
[2023-08-15] MEDS: RISPERDAL M-TAB (ORALLY DISINTEGRATING) 0.25 MG PO (02:12)
[2023-08-15 02:36] LABS: Glucose - Point of Care 185 mg/dl (70-99)
[2023-08-15] MEDS: MORPHINE SULFATE 2 MG IV (03:33)
--- NOTE | 2023-08-15 03:46 | PTCARENOTE ---
0347: Pt continues to try to get oob, attempting to bite and hit staff, pt screaming for her . [employer] VICE PRESIDENT notified order 2 mg IV morphine- SQ port replaced, pt placed in soft limb restraints. unable to obtain VS at this time. RN currently at
bedside for safety.
0212: Pt constantly trying to get oob, pulled R SQ port out, attempting to hit RN. Pt given Orally disintegrating risperdal 0.25 mg- pt swallowed pill- did not allow it to dissolve on tongue. [employer] VICE PRESIDENT updated.
--- NOTE | 2023-08-15 04:27 | VATNOTE ---
PT WITH EXTREMELY AGGRESSIVE BEHAVIOR. ATTEMPTING TO BITE ,HIT AND KICK STAFF. RELUCTANT TO ACCESS PRT FOR SAFETY REASONS. UNABLE TO ESTABLISH A PERIPHERAL ACCESS PARTLY IN DUE TO PTS CURRENT BEHAVIOR AND OUR INABILITY TO MAINTAIN ANY STABLE LIMB
POSITION. PRT ACCESSED DOCUMENTED WITH MUCH DIFFICULTY TO BE ABLE TO ADMINISTER MORPHINE. PT NOW IN BILATERAL SOFT LIMB RESTRAINTS AND MITTS.
[2023-08-15 07:35] VITALS: BP 141/99
--- NOTE | 2023-08-15 08:08 | CM ---
Addendum entered by Brittney Thomas 08/15/23 10:49:
Son on board with hospice.patient seen by [facility].she is being admitted to hospice today.
Original Note:
met with patient yesterday.she has poor appetite,confused and impulsive,given ativan,monitoring accu cecks closely.psych following.called [facility] at doctors request and they do give patient her meds.doctor had long discussion with sister and poa/son
roopa.per psych patient does not have capacity to make decisions.goc will be discussed at family meeting and family may opt for hospice.patient did poorly in therapy .therapy is reecommending snf.Plan snf vs hospice.
[2023-08-15 08:33] LABS: Glucose - Point of Care 151 mg/dl (70-99)
--- NOTE | 2023-08-15 08:44 | HOSPNOTE ---
Spoke with son and he is now in agreement with hospice services. Patient will remain inpatient hospice. Attending aware.
--- NOTE | 2023-08-15 09:10 | PN.DE.MGMTRT ---
Insulin Management
- -
08/14/2023: Diabetes Management Consult:
82-year-old female with PMH: PMH: Hypothyroidism, CVA, Seizure d/o, Colon cancer with hemicolectomy, Metastatic to the liver, discontinued immunotherapy ~2022 at patient request, laminectomy with fusion, Depression, Questionable history of
suicide intent 02/2023 with Ambien, and T2DM.
Patient presented from her Assisted living NH with hyperglycemia, Blood sugar of 597, Acute DKA with elevated anion gap, metabolic acidemia.
She was started on DKA protocol, and is noted for hypoglycemic with blood sugar of 78, prompting discontinuation of insulin drip.
Pt is disoriented and confused, restless and agitated with facial grimaces.
Noted for recurrent hypoglycemia as low as 39 at bedtime. Lantus dose was held last night, last insulin adm was 1units of aspart at 16:59 for a blood sugar of 182. Due to patient's altered mental status, Pt's family has opted for inpatient hospice.
Will discontinue all insulin and accucheks and sign off at this time.
Diabetes History
- -
Type of Diabetes: 2
Pre-Admission Diabetes Regimen
Lab Results
Hemoglobin A1c 11.2 % (4.0-5.6) H 08/11/23 02:22
Insulin Pump Settings
IP Diabetes Regimen
08/14/23 08/14/23 08/14/23
10:34 12:48 16:49
POC Glucose 115 H 266 H 182 H
08/14/23 08/14/23 08/14/23
21:10 21:29 22:15
POC Glucose 39 L* 48 L* 113 H
08/15/23 08/15/23 08/15/23
00:28 02:34 08:30
POC Glucose 197 H 185 H 151 H
Patient Education
--- NOTE | 2023-08-15 09:35 | W.PN.HOSP.TC ---
Addendum entered and electronically signed by Vaishali Mendoza MD, Resident 08/20/23 07:54:
Absent Appetite
[place] Criteria for acute malnutrition met.
Appetite stimulant Mitrazapine added to improve patient's appetite.
Addendum entered and electronically signed by Tom Gonzales MD 08/15/23 23:06:
Attending Addendum-
I saw and evaluated the patient. I reviewed the resident�s note and agree with findings and plan as documented in the resident�s note. patient resting comfortably easily arousable but confused. Full 12 point ROS reviewed and negative except as
documented-limited by CIMS Exam: Gen NAD heart RRR lungs clear abd soft LE no edema Neuro AAOx1 Plan:
# DKA
- poor prognosis
- DC and admit to hospice
# Suicide Ideation/Decision making Incapacity
- psych consult appreciated
- doesnt have capacity to make decisions
- POA Eric- son actively involved
- admit to hospice
# Colon Cancer with liver mets
- h/o colon cancer. Port in place in the right ACW.
- patient stopped therapy
- not on treatment at present
- poor prognosis
Dispo- POA decided for IP hospice after family meeting DC
Time spent coordinating care, review of plan of care with resident, review of records, transition of care DC planning med rec, consults, notes, labs, rads, d/w nursing and sister� 36 mins
Original Note:
Today's Communication/Plan
-
Discharged to hospice.
Assessment / Plan
Assessment / Plan
Assessment -
82yo F with PMHx of DM, Seizure disorder, stroke, Colon cancver s/p hemicolectomy presents to the hospital with hyperglycemia and confusion, diagnosed with DKA and high anion gap metabolic acidosis
Plan -
Comfort care
Plan for hospice.
Hypoglycemia
1 episode yesterday in the morning. Insulin Lantus dose reduced to 12 units.
Overnight an episode of hypoglycemia at 40.Patient refused oral intake insulin Lantus discontinued
Acute onset confusion-
Secondary to hypothyroidism versus overnight sedation versus hospitalization versus residual effects from DKA versus hypokalemia.
Potassium and levothyroxine supplementation given on 08/13.
Patient is going to hospice.
Acute onset DKA -
resolved.
her HbA1c is at 11.2, decided to bump up the basal insulin bolus regimen-Lantus to 15 units and NovoLog to moderate resistance insulin sliding scale.
Resume diabetic diet on the patient.
Accuchecks every 6 hourly. Patient is downgraded to telemetry.
Hyponatremia-
Resolved as of 08/13.
Repeat lab work not ordered as family decided with hospice in the evening.
Hypokalemia-
Resolved with KCl standing correction yesterday.
Repeat lab work not ordered as family decided with hospice in the evening.
Hypertension
Resumed home meds amlodipine and lisinopril.
Discontinued amlodipine and lisinopril for hospice.
Hypothyroidism-
TSH high at 77 in the AM today.
Discontinue Synthyroid for hospice.
Metastatic colon cancer
Family also states that patient has untreated mets to her liver on CT at [facility], discontinued the immunotherapy treatment as per patient's request in January.\\
Defer to hospice for records and admission into hospice.
Patient with prolonged QT per EKG, 08/10- 479, 08/11 -687, 08/12-407, 08/13-587.
Discontinued QT monitoring with EKG.
Anxiety and Depression
Psychiatry on board. Concern for increase in Lexapro dose as it can cause further QT prolongation.
Risperidone as needed.
Patient is stable today morning.
Patient reports feeling better and and not feeling depressed.
There is some discussion regarding possible transition to comfort or hospice but this decision will need to be made by family.
Request for appetite
Mirtazapine oral discontinued.
PT OT for early mobility.
DVT prophylaxis
Lovenox discontinued.
Discharge to hospice.
Anticipated Discharge: Today
Subjective/Interval History
-
Date of Service: August 15, 2023
Agitation overnight. Restlessness. Patient was in physical restraints.
Objective Data
-
Vital Signs:
Vital Signs
Temp Pulse Resp BP Pulse Ox
97.4 F 79 16 104/73 96
08/14/23 21:29 08/14/23 23:16 08/14/23 23:16 08/14/23 23:16 08/14/23 23:16
I&O
08/14/23 08/15/23 08/16/23
06:59 06:59 06:59
Intake Total 960 / 960
Balance 960 / 960
Review of Systems
-
Unable to obtain full review of systems at this time due to: Other (Patient is in confusion.)
History Source: Patient
Constitutional: Reports No Symptoms
Respiratory: Reports No Symptoms
Cardiac: Reports No Symptoms
Abdomen/GI: Reports No Symptoms
Musculoskeletal: Reports No Symptoms
Neuro: Reports No Symptoms
Physical Exam
-
General: Other (Appears restless in the bed. Not oriented to person and place.)
HEENT: Normocephalic, Atraumatic and Moist Mucous Membranes
Respiratory: Clear to Auscultation (No wheezes rales rhonchi)
Cardiac: Regular Rhythm, S1/S2 and Other (No murmurs, rubs, gallops)
GI: Soft, Nontender, Nondistended and Normal Bowel Sounds
Genito-urinary: No Costovertebral Tender
Musculoskeletal: No Edema
Neuro: Awake, Alert and Oriented (Oriented to herself not oriented to person and place.)
Psych: Confused
--- NOTE | 2023-08-15 09:36 | W.DCSUMMARY ---
Addendum entered and electronically signed by Tom Gonzales MD 08/15/23 23:03:
Attending Addendum:
Read reviewed and agree. See same day progress note for additional details.
Alex Gonzales MD
Original Note:
Documented by User: Vaishali Mendoza MD, Resident 08/15/23 10:27
Discharge Summary
Discharge Data
Date of Admission: 08/10/23
Date of Discharge: 08/15/23
-
Pending Results: No
Hospital Course
82-year-old female with PMHx of DM, seizure disorder, CVA, colon carcinoma status post hemicolectomy, discontinued immunotherapy, depression, anxiety presents to the hospital with new onset confusion and hyperglycemia. And diagnosed with DKA on
08/10/2023
Hospital course-
DKA-
Elevated beta hydroxybutyrate levels, anion gap at 23, urine ketones positive, venous blood gas analysis positive for metabolic acidosis. Patient was admitted to the intensive care unit, and was started on IV fluids, insulin drip, potassium and Q4
BMP and Q1 Accu-Cheks. Her insulin drip was titrated based on BMP and anion gap, and was switched to basal bolus insulin regimen once the anion gap closed iX 2times. Her potassium was repleted during the insulin bridging. She also received IV
dextrose during the insulin drip. After switching her to basal bolus regimen patient was transferred to IMU and patient started recovering well. However she continued to have lucid intervals with overnight agitation episodes, and admitted to have
active depression.
Her HbA1c was at 11.7�after at the session was made to proceed with complete care, basal bolus regimen advanced targeting HbA1c. However patient had continued poor oral intake and started to develop hypoglycemic episodes from day 3-08/13/2023,
08/14/2023. Day 3 insulin Lantus regimen reduce it to 12 units SC, overnight yesterday Lantus regimen stopped.
Hyponatremia
Secondary to hypovolemia from elevated blood glucose versus SIADH from escitalopram which resolved with hold off escitalopram.
Hypokalemia resolved.
Active depression-
Psych on board and due to prolonged QT interval escitalopram and Abilify were held. Patient was started on risperidone as needed and mirtazapine for appetite stimulation.
Hypothyroidism
Patient's TSH was elevated at 33 upon admission and she was switched to IV levothyroxine 75 mcg. However patient's TSH elevated to 77 yesterday with a new onset acute confusion. Levothyroxine dose bumped to 200.
Has a history of hypertension however her blood pressure was stable on day 1 2 and 3 and blood pressure medications were held. Notable elevation in blood pressure on 08 13 and reinitiated the blood pressure regimen.
Colorectal carcinoma with liver metastasis and discontinued immunotherapy in January 27.
Due to patient's altered mental status, power of litigation attorney associate son Pedro opted for inpatient hospice in the evening on 08/14/2023.
Discharge Plan
-
Patient Disposition: Hospice - Inpatient DH
Discharge Orders:
Discharge Patient (As Directed); Ordered 08/15/23
Ordered By: Vaishali Mendoza
Discharge Date and Time
Discharge Date/Time: 08/15/23 12:16
Print Language: SWEDISH

Documented by User: Tom Gonzales MD 08/15/23 23:02
Discharge Summary
Discharge Data
Date of Admission: 08/10/23
Date of Discharge: 08/15/23
Discharge Plan
-
Patient Disposition: Hospice - Inpatient
Discharge Orders:
Discharge Patient (As Directed); Ordered 08/15/23
Ordered By: Vaishali Mendoza
Discharge Date and Time
Discharge Date/Time: 08/15/23 12:16
Print Language: SWEDISH
--- NOTE | 2023-08-15 09:39 | PTOTSP ---
Reviewed chart and note pt is now going on hospice. No skilled PT needs. PT will sign off.
[2023-08-15] MEDS: NORVASC 10 MG PO (11:11)
[2023-08-15] MEDS: NOVOLOG FLEXPEN-MODERATE RESISTANCE SC (11:11)
[2023-08-15] MEDS: PROTONIX 40 MG PO (11:11)
[2023-08-15] MEDS: LOW STRENGTH ASPIRIN 81 MG PO (11:11)
[2023-08-15 11:12] VITALS: BP 147/87
[2023-08-15] MEDS: NOVOLOG FLEXPEN SC (11:12)
[2023-08-15] MEDS: KEPPRA 500 MG PO (11:12)
[2023-08-15] MEDS: ZESTRIL 5 MG PO (11:13)
[2023-08-15 11:49] LABS: Glucose - Point of Care 157 mg/dl (70-99)
--- NOTE | 2023-08-15 11:57 | PN.CDI ---
CDI
- -
CDI:
Physician Documentation Request
Admit Date: 08/10/23 22:37
Dear Doctor Reji,
08/14 Analytics Senior Manager: 'Per previous RD note Pt meets ASPEN and AND criteria for severe protein calorie mlanutrition of chronic illness with wt loss and decreased intake.'
Based on the information, which of the following most accurately represents the patient's nutritional status?
Severe protein calorie malnutrition
Other
[place] Criteria ([facility] Hospitalist 2017)
2 or more criteria must be present for either
non severe or severe malnutrition
Note that the criteria differs related to the
presence of an acute or chronic illness
Acute Illness Chronic Illness
Energy Intake Non Severe: <75% for >7 days Non Severe: <75% for >1 month
Severe: <50% for >5 days Severe: <75% for >1 month
Weight Loss Non Severe: 1-2% over 1 week Non Severe: 5% over 1 month
5% over 1 month 7.5% over 3 months
7.5% over 3 months 10% over 6 months
1 year N/A 20% over 1 year
Severe: >2% over 1 week Severe: >5% over 1 month
>5% over 1 month >7.5% over 3 months
>7.5% over 3 months >10% over 6 months
1 year N/A >20% over 1 year
Body Fat Non Severe: Mild Decrease Non Severe: Mild Loss
Severe: Moderate Decrease Severe: Severe Loss
Muscle Mass Non Severe: Mild Decrease Non Severe: Mild Loss
Severe: Moderate Decrease Severe: Severe Loss
Fluid Accumulation Non Severe: Mild Accumulation Non Severe: Mild Accumulation
Severe: Moderate to severe Severe: Moderate to severe
accumulation accumulation
Reduced Warehouse Shipping Associate Strength Non Severe: N/A Non Severe: N/A
Severe: Measurably reduced Severe: Measurably reduced
Use of terms such as suspected, likely, concern for, or probable (associated with a specific diagnosis that is being evaluated, monitored, or treated as if it exists) are acceptable and can be coded in the inpatient setting, when documented at the
time of discharge.
Thank you,
Daja Philippe RN, BSN
CDI Specialist
Available via [facility] text
Please use your independent medical judgment in providing your response.
--- NOTE | 2023-08-15 12:15 | W.PN.UPDATE ---
Update Note
Progress Note Update
psych signing off. family has opted for in patient hospice at this point.
== END 2023-08-15 12:16 | disposition home or self-care (01) | DRG 637 ==
LOC: 2 NORTH 22:37
PROVIDERS: Nurse Practitioner Family; Student in an Organized Health Care Education/Training Program; ADMITTING PHYSICIAN Hospitalist; ATTENDING PHYSICIAN Family Medicine; CONSULT PHYSICIAN Psychiatry & Neurology Psychiatry; EMERGENCY PHYSICIAN Emergency Medicine; OTHER PHYSICIAN Internal Medicine Critical Care Medicine
DX: E11.10 Type 2 diabetes mellitus with ketoacidosis without coma (principal); G92.8 Other toxic encephalopathy; C78.7 Secondary malignant neoplasm of liver and intrahepatic bile duct; E87.1 Hypo-osmolality and hyponatremia; E87.20 Acidosis, unspecified; E46 Unspecified protein-calorie malnutrition; R45.851 Suicidal ideations; E87.6 Hypokalemia; F32.9 Major depressive disorder, single episode, unspecified; E03.9 Hypothyroidism, unspecified; Z85.048 Personal history of other malignant neoplasm of rectum, rectosigmoid junction, and anus; Z79.4 Long term (current) use of insulin; Z79.82 Long term (current) use of aspirin; Z86.73 Personal history of transient ischemic attack (TIA), and cerebral infarction without residual deficits
CPT/HCPCS: 70450; 71046; 80048; 80053; 81003; 82010; 82248; 82533; 82805; 82962; 83036; 83605; 83735; 84100; 84439; 84443; 85025; 85027; 85610; 87040; 87070; 93005; 96360; 96374; 97116; 97163; 97167; 97530; 97535; 99285

== ENCOUNTER 2023-08-15 12:18 | Inpatient (IN) | payer OTHER, SELFPAY ==
[2023-08-15 12:22] VITALS: BP 132/89
--- NOTE | 2023-08-15 12:45 | PTCARENOTE ---
Received pt from with PCT at bedside, pt AAOx3, confused at times but redirectable, resting comfortably in bed at this time.
[2023-08-15] MEDS: ATIVAN 1 MG IV (15:26)
--- NOTE | 2023-08-15 15:37 | CM ---
Reviewed the chart notes. Patient is now [facility] Hosp[facility].
Plan: [facility].
[2023-08-15] MEDS: MORPHINE SULFATE 2 MG IV (16:00)
--- NOTE | 2023-08-15 17:24 | ADM.HSP ---
Addendum entered and electronically signed by Tom Gonzales MD 08/15/23 23:21:
Severe PCM
Addendum entered and electronically signed by Tom Gonzales MD 08/15/23 23:12:
Attending Addendum-
I performed a history and physical exam of the patient and discussed his management with the resident. I reviewed the resident's note and agree with the documented findings and plan of care Patient admitted to IP hospice. Appears comfortable Full 10
point ROS reviewed and limited due to MS Exam- vitals reviewed in chart GEN-sleeping comfortable heart RRR lungs clear abd soft LE no edema PLAN:
# DKA-
noncompliant and uncontrolled
admit to IP hospice per POA and family request
cont comfort care measures
# Colon ca with mets
- poor prognosis
- declining treatment
- admit to IP hospice
- comfort care
Time spent coordinating care, review of plan of care with resident, review of records, med rec, consults, notes, labs, rads, d/w nursing sister and hospice - 75 mins
Original Note:
Documented by User: Vaishali Mendoza MD, Resident 08/15/23 17:50
Admission - Hospice
History of Present Illness
82-year-old female who presents to the hospital with a past medical history of diabetes mellitus, seizure disorder, CVA, colon carcinoma status post hemicolectomy, discontinued immunotherapy, depression, anxiety presents to the hospital with new
onset confusion and hyperglycemia. And diagnosed with DKA on 08/10/2023.
During the most recent hospital visit patient had DKA with elevated beta hydroxybutyrate levels anion gap at 23, urine ketones positive, venous blood gas analysis positive for metabolic acidosis. Patient was treated for it and improved and became
mentally stable however continued to have overnight agitation and depression. Patient also had very high levels of hypothyroidism upon admission at 33 and despite treatment her TSH levels elevated to 77 yesterday with a new onset acute confusion.
Patient has no oral intake. Patient has alternating hypoglycemic and hypoglycemic episodes.
With no improvement in the mental status, and no improvement in quality of life as a considering factors, patient's family had 3-year meeting with hospice and and decided to go with hospice. Patient also expressed her wish to be in hospice.
Reason for Hospice Admission
Altered mental status, DKA, severe hypothyroidism, colon carcinoma s/p hemicolectomy with liver mets,, no oral intake.
Review of Systems
History Source: Patient and Other (Not oriented and reports that she feels uncomfortable and she wants to go home. She thinks she is sent home.)
Respiratory: No Symptoms
Cardiac: No Symptoms
GI: No Symptoms
Genito-Urinary: No Symptoms
Musculoskeletal: No Symptoms
Neuro: No Symptoms
Hematologic / Lymphatic: No Symptoms
Physical Exam
Temp Pulse Resp BP Pulse Ox
97.4 F 77 16 132/89 91
08/15/23 12:22 08/15/23 12:22 08/15/23 12:22 08/15/23 12:22 08/15/23 12:45
General: Well Developed and Well Nourished
Respiratory: Clear to Auscultation (No wheezes rales and rhonchi.)
Cardiology: Regular Rhythm, S1/S2 and Other (No murmurs, rubs, gallops.)
GI: Soft, Nontender, Nondistended and Normal Bowel Sounds
Genito-Urinary: No Symptoms
Musculoskeletal: No Edema
Skin: Warm
Neuro: Awake and Alert
Hematologic/Lymphatic: No Symptoms
Psych: No Symptoms
Assessment/Medication Plan
Generic Name Dose Route Start Last Admin
Trade Name Freq PRN Reason Stop Dose Admin
Acetaminophen 650 mg 08/15/23 15:05
Acetaminophen 325 Mg Tablet PO 09/12/23 15:04
Q4HPRN PRN
mild pain, MATTA, or temp >100.4F
Al Hydrox/Mg Hydrox/Simethicone 30 ml 08/15/23 15:05
Mag/Al/Simethicone Suspension 30 Ml Cup PO 09/12/23 15:04
Q6HPRN PRN
heartburn
Glycopyrrolate 0.2 mg 08/15/23 15:05
Glycopyrrolate 0.2 Mg/Ml Vial IV 09/12/23 15:04
Q4HPRN PRN
excessive secretions
Lorazepam 1 mg 08/15/23 15:05 08/15/23 15:26
Lorazepam 2 Mg/Ml Vial IV 09/12/23 15:04 1 mg
Q2HPRN PRN Administration
anxiety
Protocol
Magnesium Hydroxide 30 ml 08/15/23 15:05
Milk Of Magnesia 30 Ml Cup PO 09/12/23 15:04
HSPRN PRN
constipation
Morphine Sulfate 2 mg 08/15/23 15:54 08/15/23 16:00
Morphine 2 Mg/Ml Syringe IV 08/29/23 15:53 2 mg
Q1HPRN PRN Administration
moderate-severe pain / dyspnea
Morphine Sulfate 2 mg 08/15/23 15:54
Morphine 2 Mg/Ml Syringe IV 08/29/23 15:53
Q1HPRN PRN
moderate-severe pain / dyspnea
Morphine Sulfate 0 mg 08/15/23 15:54
Morphine 2 Mg/Ml Syringe IV 08/29/23 15:53
[id number] PRN
moderate-severe pain / dyspnea
Protocol
Ondansetron HCl 4 mg 08/15/23 15:05
Ondansetron 4 Mg/2 Ml Vial IV 09/12/23 15:04
Q6HPRN PRN
nausea/vomiting
Pharmacy Profile Note 0 unit 08/15/23 16:[address] 1 Unit IV 09/12/23 15:59
DIRECTED DELFINA
Prochlorperazine Edisylate 5 mg 08/15/23 15:05
Prochlorperazine 10 Mg/2 Ml Vial IV 09/12/23 15:04
Q6HPRN PRN
nausea/vomiting
Sodium Chloride 0 flush 08/15/23 14:00
Sodium Chloride 0.9% (Flush) Syringe IV 09/12/23 13:59
PER PROTOCOL DELFINA
Sodium Chloride 0.5 ml 08/15/23 15:14
Nss (Pf) 10 Ml Vial For Ativan 1 Mg Dose IV 09/12/23 15:12
Q2HPRN PRN
IV LORAZEPAM DILUTION
Data Reviewed
Labs: Labs Reviewed by me

Documented by User: Tom Gonzales MD 08/15/23 23:08
Admission - Hospice
Data Reviewed
Labs: Discussed with Physician
[2023-08-15 19:28] VITALS: BP 119/82
[2023-08-16] MEDS: ATIVAN 1 MG IV ×2 (03:51→11:46)
[2023-08-16] MEDS: MORPHINE SULFATE 2 MG IV ×4 (03:51→20:28)
[2023-08-16] MEDS: NSS (PRESERVATIVE FREE) 0.5 ML IV ×2 (03:51→11:49)
[2023-08-16 07:15] VITALS: BP 136/87
--- NOTE | 2023-08-16 09:18 | HOSPNOTE ---
Patient assessed laying prone in bed, largely unresponsive. Briefly opens eyes to touch, frowns, pulls hand away. Mottling noted to the bilateral feet. Cyanotic nail beds. Episode of Marlys-de leon breathing noted. Lungs diminished to auscultation,
heart rate and rhythm is regular, bowel sounds hypoactive. Informal conference with JACQUELINE Vick. Nava to administer a dose of morphine at this time. Phone call to patient's son Pedro with updates.
[2023-08-16] MEDS: FLUSH (NSS) 2 FLUSH IV ×2 (09:28→11:48)
--- NOTE | 2023-08-16 09:30 | PTCARENOTE ---
Pt became restless and agitated. Morphine given for increase in pain. Last dose given at est 4am with ativan. Hospice nurse in to see pt advised another dose of morphine to be given for comfort. Will cont to monitor.
--- NOTE | 2023-08-16 13:38 | W.PN.HOSP.TC ---
Today's Communication/Plan
-
GIP hospice
Start morphine drip, step 1
Family at bedside updated
Assessment / Plan
Assessment / Plan
Assessment:
DKA-noncompliant and uncontrolled
Colon ca with mets
Diabetes, type II
History of stroke/seizure disorder
Hypothyroidism
Depression
Plan:
GIP hospice
Start morphine drip, step 1
Family at bedside updated
Anticipated Discharge: 24 - 48 hours
Subjective/Interval History
-
Date of Service: August 16, 2023
RN reporting having to adriana symptoms with prn morphine, family agreeable to drip
Objective Data
-
Vital Signs:
Vital Signs
Temp Pulse Resp BP Pulse Ox
97.4 F 77 18 136/87 96
08/16/23 07:15 08/16/23 07:15 08/16/23 07:15 08/16/23 07:15 08/16/23 07:15
Physical Exam
-
General: Respiratory Distress and Pain
HEENT: Normocephalic and Atraumatic
Respiratory: Negative Wheezes
Cardiac: Regular Rhythm and S1/S2
Neuro: Sedated
Psych: Calm
Data Reviewed
-
Total Time Spent with Patient (in minutes): 40
[2023-08-16] MEDS: MORPHINE 100 IV (14:56)
[2023-08-16 19:46] VITALS: BP 155/82
[2023-08-17] MEDS: ROBINUL 0.200000000000000011 MG IV ×2 (00:58→11:14)
[2023-08-17] MEDS: MORPHINE SULFATE 2 MG IV ×3 (01:47→12:31)
[2023-08-17 07:20] VITALS: BP 56/37
--- NOTE | 2023-08-17 09:18 | HOSPNOTE ---
Patient assessed laying in bed, largely unresponsive. Lungs with crackles and rhonchi to auscultation, heart rate and rhythm is regular, positive bowel sounds. Dusky color to the skin, mottling present to the ble and bue. Episodes of apnea noted. RR
atov is 12. Mouth care performed, patient responded to the moist sponge. Informal conference with facility RN Nava. She reports patient was moved to step 1 of the morphine protocol, and has since been quite comfortable, with many family members
present. Updates via phone call to patient's son. Advised to start reaching out to some local homes per their preference. No other questions or concerns at this time.
[2023-08-17] MEDS: FLUSH (NSS) 2 FLUSH IV ×2 (11:15→12:32)
--- NOTE | 2023-08-17 13:32 | W.PN.HOSP.TC ---
Today's Communication/Plan
-
continue morphine step 1
Assessment / Plan
Assessment / Plan
Assessment:
DKA-noncompliant and uncontrolled
Colon ca with mets
Diabetes, type II
History of stroke/seizure disorder
Hypothyroidism
Depression
Plan:
GIP hospice
continue morphine drip, step 1
Family at bedside updated
Anticipated Discharge: Within 24 hours
Subjective/Interval History
-
Date of Service: August 17, 2023
remains on step 1 morphine, received 1 bolus today
Objective Data
-
Vital Signs:
Vital Signs
Temp Pulse Resp BP Pulse Ox
97.9 F 81 20 56/37 79
08/16/23 19:46 08/17/23 07:20 08/17/23 07:20 08/17/23 07:20 08/17/23 08:00
Physical Exam
-
General: No Apparent Distress
HEENT: Normocephalic and Atraumatic
Respiratory: Negative Wheezes
Cardiac: Regular Rhythm
Neuro: Sedated
Psych: Calm
Data Reviewed
-
Total Time Spent with Patient (in minutes): 41
Labs: Labs Reviewed by me
--- NOTE | 2023-08-17 16:08 | CHAP ---
Ms. Barrera was sleeping comfortably. Large family gathering around her - they were accepting and at peace, and they said Jennifer was also. Emotional and spiritual support provided, along with a prayer blanket.
--- NOTE | 2023-08-17 17:58 | W.PN.DEATH ---
Pronouncement of
-
Called to see patient to pronounce.
No spontaneous heart tones or respirations noted.
Patient not responsive to verbal stimuli.
Patient is pronounced .
Time of : 05:33 (PM)
Date of : 08/17/23
Cause of : Colon cancer
Family Notified: Yes (Son Pedro Notified)
--- NOTE | 2023-08-17 18:10 | PTCARENOTE ---
Pt and doctor was notified. Family previously left for home and was aware that she would most likely pass with in the hour. Will cont to monitor
--- NOTE | 2023-08-18 19:39 | W.DCSUMMARY ---
Discharge Summary
Discharge Data
Date of Admission: 08/15/23
Date of Discharge: 08/18/23
-
Pending Results: No
Hospital Course
82 Yo F with PMHx of DM, seizure disorder, CVA, colon carcinoma status post hemicolectomy, discontinued immunotherapy, depression, anxiety presents to the hospital with new onset confusion and hyperglycemia. And diagnosed with DKA on 08/10/2023
Hospital course-
DKA-
Elevated beta hydroxybutyrate levels, anion gap at 23, urine ketones positive, venous blood gas analysis positive for metabolic acidosis. Patient was admitted to the intensive care unit, and was started on IV fluids, insulin drip, potassium and Q4
BMP and Q1 Accu-Cheks. Her insulin drip was titrated based on BMP and anion gap, and was switched to basal bolus insulin regimen once the anion gap closed iX 2times. Her potassium was repleted during the insulin bridging. She also received IV
dextrose during the insulin drip. After switching her to basal bolus regimen patient was transferred to IMU and patient started recovering well. However she continued to have lucid intervals with overnight agitation episodes, and admitted to have
active depression.
Her HbA1c was at 11.7�after at the session was made to proceed with complete care, basal bolus regimen advanced targeting HbA1c. However patient had continued poor oral intake and started to develop hypoglycemic episodes from day 3-08/13/2023,
08/14/2023. Day 3 insulin Lantus regimen reduce it to 12 units SC, overnight yesterday Lantus regimen stopped.
Hyponatremia
Secondary to hypovolemia from elevated blood glucose versus SIADH from escitalopram which resolved with hold off escitalopram.
Hypokalemia resolved.
Active depression-
Psych on board and due to prolonged QT interval escitalopram and Abilify were held. Patient was started on risperidone as needed and mirtazapine for appetite stimulation.
Hypothyroidism
Patient's TSH was elevated at 33 upon admission and she was switched to IV levothyroxine 75 mcg. However patient's TSH elevated to 77 yesterday with a new onset acute confusion. Levothyroxine dose bumped to 200.
Has a history of hypertension however her blood pressure was stable on day 1 2 and 3 and blood pressure medications were held. Notable elevation in blood pressure on 08 13 and reinitiated the blood pressure regimen.
Colorectal carcinoma with liver metastasis and discontinued immunotherapy in January 27.
Due to patient's altered mental status, power of radio machinist son Pedro opted for inpatient hospice in the evening on 08/14/2023, and patient was admitted to inpatient hospice on 08/15/2023. During her hospice, withdrawal of care from all her regular
medication regimen was done, and was kept on Morphine protocol for providing comfort. Patient was pronounced on 08/17/23 at 5.17pm due to Colorectal cancer and Diabetes, mode of - Cardiac arrest.
.
Discharge Plan
-
Patient Disposition:
Date/Time
Date/Time: 08/17/23 18:00
Discharge Date and Time
Discharge Date/Time: 08/17/23 18:17
Print Language: ZIMBABWE[place]
--- NOTE | 2023-08-20 08:19 | W.PN.UPDATE ---
Update Note
Progress Note Update
During her hospital admission, she lost significant amount of weight from lack of appetite and decreased intake, causing acute on chronic severe malnutrition, and appetite stimulant Mirtazapine was given before hospice decision was made.
--- NOTE | 2023-08-20 12:20 | CM ---
[facility]OT (ph [phone]); unable to call back - rings as fax #. No further attempts will be made to contact them as patient had .
== END 2023-08-17 18:17 | disposition expired | DRG 951 ==
LOC: 2 NORTH 12:18
PROVIDERS: ADMITTING PHYSICIAN Family Medicine; ATTENDING PHYSICIAN Internal Medicine
DX: Z51.5 Encounter for palliative care (principal); E11.10 Type 2 diabetes mellitus with ketoacidosis without coma; E43 Unspecified severe protein-calorie malnutrition; C19 Malignant neoplasm of rectosigmoid junction; E87.1 Hypo-osmolality and hyponatremia; E86.1 Hypovolemia; I46.9 Cardiac arrest, cause unspecified; F32.A Depression, unspecified; F41.9 Anxiety disorder, unspecified; E11.649 Type 2 diabetes mellitus with hypoglycemia without coma; E03.9 Hypothyroidism, unspecified; I10 Essential (primary) hypertension; E87.6 Hypokalemia; G40.909 Epilepsy, unspecified, not intractable, without status epilepticus; Z91.199 Patient's noncompliance with other medical treatment and regimen due to unspecified reason; Z85.038 Personal history of other malignant neoplasm of large intestine; Z90.49 Acquired absence of other specified parts of digestive tract; Z86.73 Personal history of transient ischemic attack (TIA), and cerebral infarction without residual deficits